=== PATIENT | male | born 1950 | race Caucasian/White ===

== ENCOUNTER → 2017-10-21 07:42 | Outpatient (REF) | payer MEDICARE, SELFPAY ==
[2017-10-21 08:26] LABS: Add Manual Diff / Slide Review NO; Basophils Percent Auto 0.5 % (0-2); Eosinophils Percent Auto 1.2 % (2-4); Hematocrit 36.1 % (41-53); Hemoglobin 12.3 g/dL (13.5-17.5); Lymphocytes Percent Auto 45.8 % (25-40); Mean Corpuscular Hemoglobin 31.5 PG (26-34); Mean Corpuscular Volume 92.5 fL (80-100); Monocytes Percent Auto 7.9 % (3-14); Neutrophils Absolute Auto 3300 /uL (3000-5900); Neutrophils Percent Auto 44.6 % (50-75); Platelet Count 192 X10^3/uL (150-400); Red Cell Distribution Width 14.7 % (11.6-14.8); White Blood Cell Count 7.4 X10^3/uL (4.5-11.0)
[2017-10-21 08:37] LABS: Estimated Glomerular Filt Rate > 60.0 mL/min (>60); Glucose 106 mg/dL (80-110); HEMOLYSIS < 15 (0-50); Sodium 141 mmol/L (137-145)
== END ==
LOC: LAB 07:42
PROVIDERS: PCP Family Medicine; Visit Provider Family Medicine
DX: E11.9 Type 2 diabetes mellitus without complications (principal)
CPT/HCPCS: 36415; 80048; 83036; 85025

== ENCOUNTER → 2018-01-25 07:29 | Outpatient (REF) | payer MEDICARE, SELFPAY ==
[2018-01-25 07:55] LABS: Hemoglobin A1C% w Est Avg Glu 6.5 % (4.0-6.0)
[2018-01-25 07:56] LABS: BUN Creatinine Ratio 18.6 (6-22); Blood Urea Nitrogen 13 mg/dL (9-20); Calcium 9.3 mg/dL (8.4-10.2); Carbon Dioxide 29 mmol/L (22-32); Chloride 104 mmol/L (98-107); Estimated Glomerular Filt Rate > 60.0 mL/min (>60); Glucose 118 mg/dL (80-110); HEMOLYSIS < 15 (0-50); Potassium 4.2 mmol/L (3.4-5.1); Sodium 143 mmol/L (137-145)
== END ==
LOC: LAB 07:29
PROVIDERS: PCP Family Medicine; Visit Provider Family Medicine
DX: E11.9 Type 2 diabetes mellitus without complications (principal)
CPT/HCPCS: 36415; 80048; 83036

== ENCOUNTER → 2018-04-26 08:42 | Outpatient (REF) | payer MEDICARE, SELFPAY ==
[2018-04-26 10:31] LABS: Hemoglobin A1C% w Est Avg Glu 6.9 % (4.0-6.0)
[2018-04-26 10:37] LABS: BUN Creatinine Ratio 24.3 (6-22); Blood Urea Nitrogen 17 mg/dL (9-20); Calcium 9.6 mg/dL (8.4-10.2); Carbon Dioxide 28 mmol/L (22-32); Chloride 101 mmol/L (98-107); Estimated Glomerular Filt Rate > 60.0 mL/min (>60); Glucose 162 mg/dL (80-110); HEMOLYSIS < 15 (0-50); Potassium 4.1 mmol/L (3.4-5.1); Sodium 144 mmol/L (137-145)
== END ==
LOC: LAB 08:42
PROVIDERS: PCP Family Medicine; Visit Provider Family Medicine
DX: E11.9 Type 2 diabetes mellitus without complications (principal)
CPT/HCPCS: 36415; 80048; 83036

== ENCOUNTER → 2018-06-26 08:14 | Outpatient (REF) | payer MEDICARE, SELFPAY ==
[2018-06-26 09:24] LABS: Add Manual Diff / Slide Review NO; Basophils Absolute Auto 100 /uL (0-100); Basophils Percent Auto 0.9 % (0-2); Eosinophils Absolute Auto 100 /uL (0-450); Eosinophils Percent Auto 1.4 % (2-4); Hemoglobin 12.6 g/dL (13.5-17.5); Lymphocytes Absolute Auto 3100 /uL (1100-4500); Lymphocytes Percent Auto 39.6 % (25-40); Mean Corpuscular HGB Conc 33.1 % (30-36); Mean Corpuscular Hemoglobin 31.2 PG (26-34); Mean Corpuscular Volume 94.2 fL (80-100); Monocytes Absolute Auto 600 /uL (0-900); Monocytes Percent Auto 7.7 % (3-14); Neutrophils Absolute Auto 4000 /uL (1500-7000); Neutrophils Percent Auto 50.4 % (50-75); Platelet Count 225 X10^3/uL (150-400); Red Blood Cell Count 4.03 X10^6/uL (4.5-5.9); Red Cell Distribution Width 14.7 % (11.6-14.8); White Blood Cell Count 7.9 X10^3/uL (4.5-11.0)
[2018-06-26 09:25] LABS: Blood Urea Nitrogen 14 mg/dL (9-20); Calcium 9.2 mg/dL (8.4-10.2); Carbon Dioxide 28 mmol/L (22-32); Chloride 103 mmol/L (98-107); Estimated Glomerular Filt Rate > 60.0 mL/min (>60); Glucose 119 mg/dL (80-110); HEMOLYSIS < 15 (0-50); Potassium 4.5 mmol/L (3.4-5.1); Sodium 140 mmol/L (137-145)
[2018-06-26 10:01] LABS: Hemoglobin A1C% w Est Avg Glu 6.7 % (4.0-6.0)
== END ==
LOC: LAB 08:14
PROVIDERS: PCP Family Medicine; Visit Provider Family Medicine
DX: E11.9 Type 2 diabetes mellitus without complications (principal)
CPT/HCPCS: 36415; 80048; 83036; 85025

== ENCOUNTER → 2018-10-12 15:45 | Outpatient (CLI) | payer MEDICARE, SELFPAY ==
[2018-10-12 16:28] LABS: Hemoglobin A1C% w Est Avg Glu 6.5 % (4.0-6.0)
[2018-10-12 17:41] LABS: BUN Creatinine Ratio 17.5 (6-22); Blood Urea Nitrogen 14 mg/dL (9-20); Calcium 9.8 mg/dL (8.4-10.2); Carbon Dioxide 25 mmol/L (22-32); Chloride 102 mmol/L (98-107); Estimated Glomerular Filt Rate > 60.0 mL/min (>60); Glucose 128 mg/dL (80-110); HEMOLYSIS < 15 (0-50); Potassium 4.6 mmol/L (3.4-5.1); Sodium 139 mmol/L (137-145)
== END ==
PROVIDERS: PCP Family Medicine; Visit Provider Family Medicine
DX: E11.9 Type 2 diabetes mellitus without complications (principal)
CPT/HCPCS: 36415; 80048; 83036

== ENCOUNTER → 2018-12-26 11:10 | Outpatient (CLI) | payer MEDICARE, SELFPAY ==
[2018-12-26 12:11] LABS: Hemoglobin A1C% w Est Avg Glu 6.4 % (4.0-6.0)
[2018-12-26 13:56] LABS: BUN Creatinine Ratio 17.5 (6-22); Blood Urea Nitrogen 14 mg/dL (9-20); Calcium 9.6 mg/dL (8.4-10.2); Carbon Dioxide 28 mmol/L (22-32); Chloride 102 mmol/L (98-107); Estimated Glomerular Filt Rate > 60.0 mL/min (>60); Glucose 153 mg/dL (80-110); HEMOLYSIS < 15 (0-50); Potassium 4.5 mmol/L (3.4-5.1); Sodium 142 mmol/L (137-145)
== END ==
PROVIDERS: PCP Family Medicine; Visit Provider Family Medicine
DX: E11.9 Type 2 diabetes mellitus without complications (principal)
CPT/HCPCS: 36415; 80048; 83036

== ENCOUNTER → 2019-03-26 07:28 | Outpatient (ROUT) | payer MEDICARE, SELFPAY ==
[2019-03-26 07:51] LABS: Hemoglobin A1C% w Est Avg Glu 6.5 % (4.0-6.0)
[2019-03-26 07:58] LABS: BUN Creatinine Ratio 21.7 (6-22); Blood Urea Nitrogen 13 mg/dL (9-20); Calcium 9.3 mg/dL (8.4-10.2); Carbon Dioxide 30 mmol/L (22-32); Chloride 105 mmol/L (98-107); Estimated Glomerular Filt Rate > 60.0 mL/min (>60); Glucose 111 mg/dL (80-110); HEMOLYSIS < 15 (0-50); Sodium 141 mmol/L (137-145)
== END ==
PROVIDERS: PCP Family Medicine; Visit Provider Family Medicine
DX: E11.9 Type 2 diabetes mellitus without complications (principal)
CPT/HCPCS: 36415; 80048; 83036

== ENCOUNTER 2019-03-29 10:36 | Emergency (ER) | payer MEDICARE, SELFPAY ==
--- NOTE | 2019-03-29 10:41 | ED.NEUROSD ---
HPI - Neuro Symptoms/Deficit General Chief Complaint: Neuro Symptoms/Deficit Stated Complaint: Neuro changes Time Seen by Provider: 03/29/19 10:41 Source: EMS Mode of arrival: EMS Limitations: altered mental status History of Present Illness HPI Narrative: Patient is a resident of [facility]. 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 He was noted to be normal/baseline at 8:00 a.m.. He arrives by EMS approximately 2.5 hours later, he developed expressive aphasia and no responses to interaction with staff. Upon arrival he is awake, is no verbal response, but he nausea understands me. He obeys verbal complaints. He is apparently in no pain. He indicates this by head nods. He smiles, blinks his eyes, he moves his left extremities on command. He has a baseline of hemiplegia to the right side. There is no reported recent illness. Related Data Home Medications Medication Instructions Recorded Confirmed acetaminophen 325 - 650 mg PO Q4HP PRN 03/29/19 03/29/19 alprazolam [Xanax] 0.25 mg PO BEDTIME 03/29/19 03/29/19 baclofen 20 - 40 mg PO BID 03/29/19 03/29/19 Previous Rx's Medication Instructions Recorded bupropion HCl 150 mg tablet,12 hr 150 mg PO BID #180 tab 11/14/18 sustained-release atorvastatin 40 mg tablet 40 mg PO DAILY #90 tab 12/11/18 metformin 500 mg tablet 500 mg PO BID #180 tab 12/11/18 water for irrigation, sterile 60 ml IRR .COMPLEX #1000 ml 01/08/19 Allergies Allergy/AdvReac Type Severity Reaction Status Date / Time Penicillins Allergy Unknown Verified 03/19/19 15:50 Review of Systems Review of Systems ROS Unobtainable: Unobtainable due to medical condition Patient History Medical History (Updated 03/29/19 @ 12:02 by Yeison Pierson MD) Cataract (Chronic) Diabetes mellitus (Chronic ~2012) Diverticulitis (Chronic ~2013) Hyperlipidemia (Chronic ~2013) Stroke (Chronic ~2014) Urinary retention (Acute) Surgical History Anesthesia (Resolved) History of tonsillectomy Family History Father Dementia Sister Age: 64 Acute ischemic stroke Social History Smoking Status: Former smoker Exam Initial Vital Signs Initial Vital Signs: Vital Signs Temperature 97.9 F 03/29/19 10:45 Pulse Rate 77 03/29/19 10:45 Respiratory Rate 16 03/29/19 10:45 Blood Pressure 137/81 03/29/19 10:45 Pulse Oximetry 93 03/29/19 10:45 Const General: frail appearing and other (Minimally responsive, aphasia.) [facility] Head: normal to inspection, normocephalic and atraumatic Ears: TM's normal bilaterally Face and sinus: normal facial exam Mouth: oral mucosae normal Teeth and gingiva: gingiva normal Throat: posterior oropharynx normal Eyes General: appearance normal, both eyes and all related structures Eyelids: eyelids normal Conjunctivae: conjunctivae normal Sclera: sclerae normal Pupils: PERRL and pupil size bilaterally 3 EOM: EOM intact bilaterally Neck Neck: No lymphadenopathy and No JVD Thyroid: thyroid normal Chest Chest: normal inspection of the chest Resp Effort & Inspection: normal respiratory effort, able to speak in complete sentences, no respiratory distress and no use of accessory muscles Auscultation: clear to auscultation bilaterally, no rales, no rhonchi and no wheezes Cardio Rate: regular rate Rhythm: regular rhythm Heart Sounds: S1 normal, S2 normal, no click, no gallops, no murmurs and no rubs Pulses: normal peripheral pulses GI Inspection: non-distended Palpation: soft, no hepatosplenomegaly, No guarding and No tender Auscultation: normal bowel sounds Skin General: no rashes or lesions noted and No petechiae Neuro Other: Weight. Aphasia. Chronic right facial droop, and chronic right-sided hemiparalysis. Responds to verbal commands with eye motion, attempt to smile, and left side motion. No verbal response. Orientation and question answering cannot be assessed. Sensation cannot be assessed. Extrem Other: Moves left side under command, right-sided paralysis. Course Course Course Narrative: The patient had dense neurologic deficits prior to arrival, but apparently improved the symptoms been able to respond to me after arrival. Head CT and labs have been normal other than the the urine sample. He has indwelling Meyer for urinary retention, colonization is assumed. He is now awake, comprehending our conversation, and remembering my 1st visit where I was doing a neurologic evaluation. He is currently asymptomatic. His POLST was reviewed. No aggressive management is expected, including no antibiotics unless for symptoms. He now sees be back to his baseline. I discussed the case with his primary care doctor, Dr. Zeb Cadena. Based upon the clinical situation and expectations, at the patient can't pass a swallow test he will go back to his care facility. Dr. Cadena will then order OT and PT. The patient will be given aspirin/started on aspirin prior to discharge. Orders Ordered: ED Orders 03/29/19 10:42 CT head/brain wo con Stat EKG-12 Lead Stat 03/29/19 10:49 Basic Metabolic Panel Stat Complete Blood Count AUTO DIFF Stat Partial Thromboplastin Time Stat Prothrombin Time INR Stat 03/29/19 11:05 Urinalysis and Microscopic Stat Urine Culture Stat Discontinued Medications Aspirin (Aspirin Chew) 324 mg PO NOW ONE Stop: 03/29/19 12:01 Last Admin: 03/29/19 12:08 Dose: 324 mg Documented by: MARYLU Sodium Chloride (Normal Saline 0.9%) 1,000 mls @ 150 mls/hr IV CONT SOTO Last Admin: 03/29/19 11:37 Dose: Not Given Documented by: JESSICALE Sodium Chloride (Normal Saline 0.9%) 1,000 mls @ 1,000 mls/hr IV BOLUS ONE Stop: 03/29/19 12:27 Last Admin: 03/29/19 11:37 Dose: Not Given Documented by: MARYLU Ceftriaxone Sodium/Dextrose (Rocephin) 1 gm in 50 mls @ 100 mls/hr IV NOW ONE Stop: 03/29/19 11:57 Last Admin: 03/29/19 11:37 Dose: Not Given Documented by: MARYLU Vital Signs Vital signs: Vital Signs - 8 hr 03/29/19 10:45 03/29/19 11:33 03/29/19 12:05 Temperature 97.9 F Pulse Rate 77 77 71 Respiratory Rate 16 18 15 Blood Pressure 137/81 Blood Pressure [Left Arm] 137/81 128/74 Pulse Oximetry 93 98 98 03/29/19 12:57 Temperature Pulse Rate 76 Respiratory Rate 17 Blood Pressure Blood Pressure [Left Arm] 121/69 Pulse Oximetry 97 MDM - Neuro Symptoms/Deficit Lab Data Result diagrams: 03/29/19 10:49 03/29/19 10:49 Labs: Lab Results 03/29/19 03/29/19 03/29/19 Range/Units 10:49 10:49 10:49 WBC 7.5 (4.5-11.0) X10^3/uL RBC 4.05 L (4.5-5.9) X10^6/uL Hgb 12.8 L (13.5-17.5) g/dL Hct 38.3 L (41-53) % MCV 94.4 (80-100) fL MCH 31.7 (26-34) PG MCHC 33.6 (30-36) % RDW 15.0 H (11.6-14.8) % Plt Count 259 (150-400) X10^3/uL Neut % (Auto) 54.1 (50-75) % Lymph % (Auto) 34.9 (25-40) % [place] % (Auto) 9.4 (3-14) % Eos % (Auto) 0.9 L (2-4) % Baso % (Auto) 0.7 (0-2) % Neut # (Auto) 4100 (0273-6576) /uL Lymph # (Auto) 2600 (4163-5682) /uL [place] # (Auto) 700 (0-900) /uL Eos # (Auto) 100 (0-450) /uL Baso # (Auto) 100 (0-100) /uL PT 13.2 H (10.1-12.7) SECONDS INR 1.1 (0.9-1.3) APTT 39 H (26.4-36.2) SECONDS Sodium 141 (137-145) mmol/L Potassium 4.0 (3.4-5.1) mmol/L Chloride 101 (98-107) mmol/L Carbon Dioxide 29 (22-32) mmol/L BUN 12 (9-20) mg/dL Creatinine 0.60 L (0.66-1.25) mg/dL Estimated GFR > 60.0 (>60) mL/min BUN/Creatinine Ratio 20.0 (6-22) Glucose 105 (80-110) mg/dL Calcium 9.4 (8.4-10.2) mg/dL Urine Color Urine Appearance Urine pH (4.5-8.0) Ur Specific [place] (1.000-1.035) Urine Protein (Negative) Urine Glucose (UA) (Negative) g/dL Urine Ketones (NEGATIVE) Urine Occult Blood (Negative) Urine Nitrate (Negative) Urine Bilirubin (NEGATIVE) Urine Urobilinogen (0.2) E.U./dL Ur Leukocyte Esterase (NEGATIVE) Urine RBC (0-5/HPF) Urine WBC (0-5/HPF) Amorphous Sediment Urine Bacteria (None) Ur Culture Indicated? 03/29/19 Range/Units 11:05 WBC (4.5-11.0) X10^3/uL RBC (4.5-5.9) X10^6/uL Hgb (13.5-17.5) g/dL Hct (41-53) % MCV (80-100) fL MCH (26-34) PG MCHC (30-36) % RDW (11.6-14.8) % Plt Count (150-400) X10^3/uL Neut % (Auto) (50-75) % Lymph % (Auto) (25-40) % [place] % (Auto) (3-14) % Eos % (Auto) (2-4) % Baso % (Auto) (0-2) % Neut # (Auto) (5191-8863) /uL Lymph # (Auto) (3075-9139) /uL [place] # (Auto) (0-900) /uL Eos # (Auto) (0-450) /uL Baso # (Auto) (0-100) /uL PT (10.1-12.7) SECONDS INR (0.9-1.3) APTT (26.4-36.2) SECONDS Sodium (137-145) mmol/L Potassium (3.4-5.1) mmol/L Chloride (98-107) mmol/L Carbon Dioxide (22-32) mmol/L BUN (9-20) mg/dL Creatinine (0.66-1.25) mg/dL Estimated GFR (>60) mL/min BUN/Creatinine Ratio (6-22) Glucose (80-110) mg/dL Calcium (8.4-10.2) mg/dL Urine Color Yellow Urine Appearance Cloudy Urine pH 6.5 (4.5-8.0) Ur Specific [place] 1.020 (1.000-1.035) Urine Protein Negative (Negative) Urine Glucose (UA) Negative (Negative) g/dL Urine Ketones 1+ H (NEGATIVE) Urine Occult Blood 1+ H (Negative) Urine Nitrate Negative (Negative) Urine Bilirubin Negative (NEGATIVE) Urine Urobilinogen 0.2 (0.2) E.U./dL Ur Leukocyte Esterase 2+ H (NEGATIVE) Urine RBC 5-10/hpf H (0-5/HPF) Urine WBC 30-100/hpf H (0-5/HPF) Amorphous Sediment 1+ Urine Bacteria Many (>30) H (None) Ur Culture Indicated? Specimen cultured Point of Care Testing Glucose POC [address] scan - head: My impression: 61 Yeison Pierson MD Find Patient Imaging - Aftab Irizarry 68 M 1950 ACTIVITY DATE EXAM STATUS AUTHOR 03/29/19 10:42 [place] [address] CT Scan Report Signed Patient: Aftab Irizarry KMR#: [id number] : 9Acct:[id number] Age/Sex: 68 / MDate of Service: 03/29/19 Loc: ED Accession Number: [id number] Procedure: CT head/brain wo con Ordering Provider: Yeison Pierson MD PROCEDURE: CT HEAD/BRAIN WO CON INDICATIONS: New onset aphasia. Prior CVA with right hemiparesis. TECHNIQUE: Noncontrast 4.5 mm thick angled axial sections acquired from the foramen magnum to the vertex, with coronal and sagittal reformats. For radiation dose reduction, the following was used: automated exposure control, adjustment of mA and/or kV according to patient size. COMPARISON: None. FINDINGS: Image quality: Excellent. CSF spaces: Basal cisterns are patent. No extra-axial fluid collections. The ventricles are symmetric in size and shape. Brain: No intracranial bleeds or masses. Chronic infarct with surrounding gliosis involving the left putamen, left external capsule and left cardenas radiata. Chronic, parietal-occipital infarcts with surrounding gliosis. There is cerebral volume loss for age, with resultant ventricular and sulcal prominence. There are periventricular and deep white matter chronic small vessel ischemic changes. There is intracranial internal carotid artery atherosclerosis. Skull and face: Calvarium and visualized facial bones appear intact, without suspicious lesions. Sinuses: Visualized sinuses and mastoids are clear. IMPRESSION: 1. No acute intracranial disease process. 2. No intracranial hemorrhage. 3. Chronic infarcts as described above. Findings telephoned to Dr. Yeison Pierson on 03/29/2019 at 1109 hrs. Dictated by: Mariam Kohler MD, PhD on 03/29/2019 at 11:07 Approved by: Mariam Kohler MD, PhD on 03/29/2019 at 11:11 ECG Data Attestation: I personally reviewed and interpreted this ECG as follows: (Normal sinus rhythm rate 76 beats per minute. Normal intervals. Old septal infarct. Poor R-wave progression through the anterior leads. No ectopy. No acute ST T wave changes.) Discharge Plan Departure Patient Disposition: Assisted Living Clinical Impression: Brain TIA Discharge Date/Time: 03/29/19 13:38 Instructions: DI for Transient Ischemic Attack Activity Restrictions/Additional Instructions: Continue her current medications. Baby aspirin, 1 tablet daily. Prescriptions: No Action bupropion HCl [Wellbutrin SR] 150 mg tablet sustained-release 12 hr 150 mg PO BID Qty: 180 RF: 1 metformin [Glucophage] 500 mg tablet 500 mg PO BID Qty: 180 RF: 1 atorvastatin 40 mg tablet 40 mg PO DAILY Qty: 90 RF: 1 water for irrigation, sterile [Aqua Care Sterile Water] solution 60 ml IRR .COMPLEX Qty: 1000 RF: 3 acetaminophen 325 mg tablet 325 - 650 mg PO Q4HP PRN (Reason: fever or pain) RF: 0 baclofen 20 mg tablet 20 - 40 mg PO BID RF: 0 alprazolam [Xanax] 0.25 mg tablet 0.25 mg PO BEDTIME RF: 0 Referrals: Zeb Cadena MD [Primary Care Provider] -
[2019-03-29 10:45] VITALS: BP 137/81; PULSE 77; RESP 16; TEMP 36.6; O2SAT 93
[2019-03-29 10:53] LABS: Add Manual Diff / Slide Review NO; Basophils Absolute Auto 100 /uL (0-100); Basophils Percent Auto 0.7 % (0-2); Eosinophils Absolute Auto 100 /uL (0-450); Eosinophils Percent Auto 0.9 % (2-4); Hematocrit 38.3 % (41-53); Hemoglobin 12.8 g/dL (13.5-17.5); Lymphocytes Absolute Auto 2600 /uL (1100-4500); Lymphocytes Percent Auto 34.9 % (25-40); Mean Corpuscular HGB Conc 33.6 % (30-36); Mean Corpuscular Hemoglobin 31.7 PG (26-34); Mean Corpuscular Volume 94.4 fL (80-100); Monocytes Absolute Auto 700 /uL (0-900); Monocytes Percent Auto 9.4 % (3-14); Neutrophils Absolute Auto 4100 /uL (1500-7000); Neutrophils Percent Auto 54.1 % (50-75); Platelet Count 259 X10^3/uL (150-400); Red Blood Cell Count 4.05 X10^6/uL (4.5-5.9); White Blood Cell Count 7.5 X10^3/uL (4.5-11.0)
[2019-03-29 10:55] LABS: INR 1.1 (0.9-1.3); Prothrombin Time 13.2 SECONDS (10.1-12.7)
[2019-03-29 10:58] LABS: PTT Partial Thromboplastin Tim 39 SECONDS (26.4-36.2)
[2019-03-29 11:01] LABS: Blood Urea Nitrogen 12 mg/dL (9-20); Calcium 9.4 mg/dL (8.4-10.2); Carbon Dioxide 29 mmol/L (22-32); Chloride 101 mmol/L (98-107); Estimated Glomerular Filt Rate > 60.0 mL/min (>60); Glucose 105 mg/dL (80-110); HEMOLYSIS < 15 (0-50); Sodium 141 mmol/L (137-145)
[2019-03-29 11:12] LABS: Appearance Urine UA CLOUDY; Bilirubin Urine UA NEGATIVE (NEGATIVE); Color Urine UA YELLOW; Glucose Urine UA NEGATIVE (Negative); Ketones Urine UA 1+ (NEGATIVE); Leukocyte Esterase Urine UA 2+ (NEGATIVE); Nitrite Urine UA NEGATIVE (Negative); Occult Blood Urine UA 1+ (Negative); Protein Urine UA NEGATIVE (Negative); Urobilinogen Urine UA 0.2 E.U./dL (0.2); pH Urine UA 6.5 (4.5-8.0)
--- NOTE | 2019-03-29 11:20 | PC.NURSE ---
Received pt at 1100. pt resting in bed with DI at bedside to take pt for head CT. Labs drawn, attached to cardiac monitoring, IV in place. Noted that report from EMS on arrival that pt had change in LOC and decreased responsiveness when rounded on this morning at [address] [facility]. Pt is alert and oriented at this time. Pt with h/o R sided CVA with R sided hemiparesis. Unk if LOC is baseline. Able to verbalize that he is not in pain. No dysarthria noted. slow to speak, although words are clear. EKG obtained. HR [address] and specimen obtained and sent per order. NAD at this time.
[2019-03-29 11:25] LABS: Amorphous Sediment Urine 1+; Bacteria Urine Many (>30); Culture Indicated Urine Specimen Cultured; RBC Urine 5-10/HPF (0-5/HPF); WBC Urine 30-100/HPF (0-5/HPF)
[2019-03-29 11:33] VITALS: BP 137/81; PULSE 77; RESP 18; O2SAT 98
--- NOTE | 2019-03-29 11:36 | PC.NURSE ---
Received verbal order from Dr Pierson that per patients POLST no ABX shall be admin'd. Orders canceled.
[2019-03-29 12:05] VITALS: BP 128/74; PULSE 71; RESP 15; O2SAT 98
[2019-03-29] MEDS: ASPIRIN 81 MG CHEW TAB 324 MG PO (12:08)
[2019-03-29 12:57] VITALS: BP 121/69; PULSE 76; RESP 17; O2SAT 97
--- NOTE | 2019-03-29 13:10 | PC.NURSE ---
pt passed swallow test. given ASA per MAR without complication
--- NOTE | 2019-03-29 13:36 | PC.NURSE ---
Attempted report to [facility] with the number that was provided. No answer. left message with call back number.
== END 2019-03-29 13:38 ==
PROVIDERS: Emergency Provider Emergency Medicine; PCP Family Medicine
DX: G45.8 Other transient cerebral ischemic attacks and related syndromes (principal); R33.9 Retention of urine, unspecified; G81.11 Spastic hemiplegia affecting right dominant side
CPT/HCPCS: 36415; 70450; 80048; 81001; 82962; 85025; 85610; 85730; 87077; 87086; 87186; 93005; 99283; 99285

== ENCOUNTER → 2019-04-17 11:22 | Outpatient (CLI) | payer MEDICARE, SELFPAY ==
[2019-04-17 12:05] LABS: Appearance Urine UA SL CLOUDY; Bilirubin Urine UA NEGATIVE (NEGATIVE); Color Urine UA YELLOW; Glucose Urine UA NEGATIVE (Negative); Ketones Urine UA NEGATIVE (NEGATIVE); Leukocyte Esterase Urine UA 2+ (NEGATIVE); Nitrite Urine UA POSITIVE (Negative); Occult Blood Urine UA 3+ (Negative); Protein Urine UA 2+ (Negative); Urobilinogen Urine UA 0.2 E.U./dL (0.2); pH Urine UA 6.5 (4.5-8.0)
[2019-04-17 12:22] LABS: Bacteria Urine Many (>30); RBC Urine 30-100/HPF (0-5/HPF); WBC Urine >100/HPF (0-5/HPF)
== END ==
PROVIDERS: PCP Family Medicine; Visit Provider Family Medicine
DX: N39.0 Urinary tract infection, site not specified (principal)
CPT/HCPCS: 81001; 87077; 87086; 87186

== ENCOUNTER → 2019-04-30 10:48 | Outpatient (ROUT) | payer MEDICARE, SELFPAY ==
[2019-04-30 10:50] LABS: Bacteria Urine None Seen
[2019-04-30 10:59] LABS: Appearance Urine UA CLOUDY; Bilirubin Urine UA NEGATIVE (NEGATIVE); Color Urine UA YELLOW; Glucose Urine UA NEGATIVE (Negative); Ketones Urine UA 1+ (NEGATIVE); Leukocyte Esterase Urine UA TRACE (NEGATIVE); Nitrite Urine UA POSITIVE (Negative); Occult Blood Urine UA 3+ (Negative); Protein Urine UA 2+ (Negative); Specific Gravity Urine UA 1.025 (1.000-1.035); Urobilinogen Urine UA 0.2 E.U./dL (0.2)
[2019-04-30 11:11] LABS: Culture Indicated Urine Specimen Cultured; RBC Urine 5-10/HPF (0-5/HPF); WBC Urine 5-10/HPF (0-5/HPF)
== END ==
PROVIDERS: PCP Family Medicine; Visit Provider Family Medicine
DX: R39.89 Other symptoms and signs involving the genitourinary system (principal)
CPT/HCPCS: 81001; 87077; 87086; 87186

== ENCOUNTER 2019-05-23 08:09 | Observation (INO) | payer MEDICARE, SELFPAY ==
[2019-05-23] VITALS (11 sets, daily range): BP systolic 114–153; BP diastolic 70–90; PULSE 68–86; RESP 14–21; TEMP 36.2–36.8; O2SAT 94–98; BMI 23.7
--- NOTE | 2019-05-23 08:13 | ED.AMS ---
HPI - Altered Mental Status General Chief Complaint: Altered Mental Status Stated Complaint: Possible Stroke Time Seen by Provider: 05/23/19 08:10 Source: EMS and old records reviewed Mode of arrival: EMS History of Present Illness HPI narrative: Patient is a 68-year-old male with history of CVA and right-sided hemiparesis presenting with altered mental status. He lives at [facility] and is typically is GCS of 15. He was found this morning by staff not talking or following directions. He has a chronic Meyer catheter is which does appear to have some sediment. He had a UTI April 30 he takes Macrobid prophylactically daily. He is unable to provide any history or follow commands. He has right-sided hemiparesis from previous stroke but no other focal deficits. MD complaint: altered mental status Related Data Home Medications Medication Instructions Recorded Confirmed baclofen 20 - 40 mg PO BID 03/29/19 05/23/19 Previous Rx's Medication Instructions Recorded water for irrigation, sterile 60 ml IRR .COMPLEX #1000 ml 04/30/19 nitrofurantoin macrocrystal 50 mg 50 mg PO BEDTIME #30 cap 05/04/19 capsule acetaminophen 325 mg tablet 325 - 650 mg PO Q4HP PRN #60 tab 05/16/19 atorvastatin 40 mg tablet 40 mg PO DAILY #90 tab 05/16/19 bupropion HCl 150 mg tablet,12 hr 150 mg PO BID #180 tab 05/16/19 sustained-release metformin 500 mg tablet 500 mg PO BID #180 tab 05/16/19 Allergies Allergy/AdvReac Type Severity Reaction Status Date / Time Penicillins Allergy Unknown Verified 05/23/19 09:38 Review of Systems Review of Systems ROS Unobtainable: Unobtainable due to medical condition Patient History Medical History Cataract (Chronic) Diabetes mellitus (Chronic ~2012) Diverticulitis (Chronic ~2013) Hyperlipidemia (Chronic ~2013) Stroke (Chronic ~2014) Urinary retention (Acute) Surgical History Anesthesia (Resolved) History of tonsillectomy Family History Father Dementia Sister Age: 64 Acute ischemic stroke Social History (Reviewed 05/23/19 @ 08:29 by JUAN Vallecillo Smoking Status: Smoker, status unknown Smoking Status: Smoker, status unknown Substance Use Type: does not use Exam Initial Vital Signs Initial Vital Signs: Vital Signs Temperature 97.4 F L 05/23/19 08:14 Pulse Rate 68 05/23/19 08:14 Respiratory Rate 16 05/23/19 08:14 Blood Pressure 153/78 H 05/23/19 08:14 Pulse Oximetry 94 05/23/19 08:14 Gen.: Alert elderly male HEENT: Atraumatic face symmetric extraocular muscles intact Lungs: Clear bilaterally Cardiac: Regular rate Abdomen: Soft nontender : Meyer catheter place Extremities: Right-sided hemiparesis no gross bony deformity peripheral pulses intact no lower extremity edema Neurologic: Alert nonverbal, not following commands Scores GCS [place] coma scale eye opening: Spontaneous [place] coma scale verbal response: None [place] coma scale motor response: Localising [place] coma scale total score: 10 Course Orders Ordered: ED Orders 05/23/19 08:05 B Type Natriuretic Peptide Stat Complete Blood Count AUTO DIFF Stat Comprehensive Metabolic Panel Stat Partial Thromboplastin Time Stat Procalcitonin Stat Prolactin Stat Prothrombin Time INR Stat Thyroid Stimulating Hormone Stat Troponin & CK Cardiac Panel Stat 05/23/19 08:11 Urinalysis and Microscopic Stat Urine Culture Stat EKG-12 Lead Stat 05/23/19 08:12 CT head/brain wo con Stat XR chest 1V Stat 05/23/19 08:15 Lactate (Lactic Acid) Stat 05/23/19 08:40 Blood Culture Stat Sodium Chloride (Normal Saline 0.9%) 1,000 mls @ 150 mls/hr IV CONT SOTO Last Infusion: 05/23/19 10:33 Dose: 0 mls/hr Documented by: Admin: 05/23/19 08:33 Dose: 150 mls/hr Documented by: MARYLU Discontinued Medications Dexamethasone (Decadron) 10 mg PO NOW ONE Stop: 05/23/19 09:06 Last Admin: 05/23/19 09:14 Dose: Not Given Documented by: JAYE Epinephrine (Epinephrine Racemic) 0.5 ml INH NOW ONE Stop: 05/23/19 09:06 Last Admin: 05/23/19 09:14 Dose: Not Given Documented by: JAYE Ceftriaxone Sodium/Dextrose (Rocephin) 1 gm in 50 mls @ 100 mls/hr IV NOW ONE Stop: 12/25/19 09:57 Last Infusion: 05/23/19 10:15 Dose: 0 mls/hr Documented by: Admin: 05/23/19 09:43 Dose: 100 mls/hr Documented by: RYAN Vital Signs Vital signs: Vital Signs - 8 hr 05/23/19 08:14 05/23/19 09:00 05/23/19 09:30 Temperature 97.4 F L Pulse Rate 68 69 78 Respiratory Rate 16 14 16 Blood Pressure 153/78 H Blood Pressure [Right Arm] 137/79 143/90 H Pulse Oximetry 94 97 97 05/23/19 10:00 Temperature Pulse Rate 75 Respiratory Rate 21 Blood Pressure Blood Pressure [Right Arm] 137/83 Pulse Oximetry 98 MDM - Altered Mental Status Lab Data Attestation: I reviewed the patient's lab results. Result diagrams: 05/23/19 08:05 05/23/19 08:05 Labs: Lab Results 05/23/19 05/23/19 05/23/19 Range/Units 08:05 08:05 08:05 WBC 7.6 (4.5-11.0) X10^3/uL RBC 3.82 L (4.5-5.9) X10^6/uL Hgb 12.3 L (13.5-17.5) g/dL Hct 36.3 L (41-53) % MCV 94.9 (80-100) fL MCH 32.1 (26-34) PG MCHC 33.8 (30-36) % RDW 15.6 H (11.6-14.8) % Plt Count 290 (150-400) X10^3/uL Neut % (Auto) 46.6 L (50-75) % Lymph % (Auto) 42.6 H (25-40) % [place] % (Auto) 7.4 (3-14) % Eos % (Auto) 2.1 (2-4) % Baso % (Auto) 1.3 (0-2) % Neut # (Auto) 3600 (3702-8772) /uL Lymph # (Auto) 3300 (2089-2965) /uL [place] # (Auto) 600 (0-900) /uL Eos # (Auto) 200 (0-450) /uL Baso # (Auto) 100 (0-100) /uL PT 12.4 (10.1-12.7) SECONDS INR 1.1 (0.9-1.3) APTT 43 H D (26.4-36.2) SECONDS Sodium 142 (137-145) mmol/L Potassium 4.1 (3.4-5.1) mmol/L Chloride 105 (98-107) mmol/L Carbon Dioxide 30 (22-32) mmol/L BUN 13 (9-20) mg/dL Creatinine 0.60 L (0.66-1.25) mg/dL Estimated GFR > 60.0 (>60) mL/min BUN/Creatinine Ratio 21.7 (6-22) Glucose 102 (80-110) mg/dL Lactate (0.7-2.1) mmol/L Calcium 9.4 (8.4-10.2) mg/dL Total Bilirubin 0.6 (0.2-1.3) mg/dL AST 22 (17-59) IU/L ALT 20 (<50) IU/L Alkaline Phosphatase 151 H (38-126) U/L Total Creatine Kinase 35 L (55-170) U/L CK-MB (CK-2) TNP CK-MB (CK-2) Rel Index TNP Troponin I < 0.012 (0.01-0.034) ng/mL B-Natriuretic Peptide (<100) Total Protein 6.9 (6.3-8.2) g/dL Albumin 4.0 (3.5-5.0) g/dL Globulin 2.9 (1.7-4.1) g/dL Albumin/Globulin Ratio 1.4 (1.0-2.8) Procalcitonin (<0.5) ng/mL TSH (0.47-4.68) uIU/mL Prolactin 27.2 H (3.7-17.9) ng/mL Urine Color Urine Appearance Urine pH (4.5-8.0) Ur Specific [place] (1.000-1.035) Urine Protein (Negative) Urine Glucose (UA) (Negative) g/dL Urine Ketones (NEGATIVE) Urine Occult Blood (Negative) Urine Nitrate (Negative) Urine Bilirubin (NEGATIVE) Urine Urobilinogen (0.2) E.U./dL Ur Leukocyte Esterase (NEGATIVE) Urine RBC (0-5/HPF) Urine WBC (0-5/HPF) Ur Squamous Epith Cells (0-5/HPF) Urine Bacteria (None) Ur Culture Indicated? 05/23/19 05/23/19 05/23/19 Range/Units 08:05 08:05 08:05 WBC (4.5-11.0) X10^3/uL RBC (4.5-5.9) X10^6/uL Hgb (13.5-17.5) g/dL Hct (41-53) % MCV (80-100) fL MCH (26-34) PG MCHC (30-36) % RDW (11.6-14.8) % Plt Count (150-400) X10^3/uL Neut % (Auto) (50-75) % Lymph % (Auto) (25-40) % [place] % (Auto) (3-14) % Eos % (Auto) (2-4) % Baso % (Auto) (0-2) % Neut # (Auto) (5585-7202) /uL Lymph # (Auto) (4154-3158) /uL [place] # (Auto) (0-900) /uL Eos # (Auto) (0-450) /uL Baso # (Auto) (0-100) /uL PT (10.1-12.7) SECONDS INR (0.9-1.3) APTT (26.4-36.2) SECONDS Sodium (137-145) mmol/L Potassium (3.4-5.1) mmol/L Chloride (98-107) mmol/L Carbon Dioxide (22-32) mmol/L BUN (9-20) mg/dL Creatinine (0.66-1.25) mg/dL Estimated GFR (>60) mL/min BUN/Creatinine Ratio (6-22) Glucose (80-110) mg/dL Lactate (0.7-2.1) mmol/L Calcium (8.4-10.2) mg/dL Total Bilirubin (0.2-1.3) mg/dL AST (17-59) IU/L ALT (<50) IU/L Alkaline Phosphatase (38-126) U/L Total Creatine Kinase (55-170) U/L CK-MB (CK-2) CK-MB (CK-2) Rel Index Troponin I (0.01-0.034) ng/mL B-Natriuretic Peptide < 100 (<100) Total Protein (6.3-8.2) g/dL Albumin (3.5-5.0) g/dL Globulin (1.7-4.1) g/dL Albumin/Globulin Ratio (1.0-2.8) Procalcitonin < 0.05 (<0.5) ng/mL TSH 3.41 (0.47-4.68) uIU/mL Prolactin (3.7-17.9) ng/mL Urine Color Urine Appearance Urine pH (4.5-8.0) Ur Specific [place] (1.000-1.035) Urine Protein (Negative) Urine Glucose (UA) (Negative) g/dL Urine Ketones (NEGATIVE) Urine Occult Blood (Negative) Urine Nitrate (Negative) Urine Bilirubin (NEGATIVE) Urine Urobilinogen (0.2) E.U./dL Ur Leukocyte Esterase (NEGATIVE) Urine RBC (0-5/HPF) Urine WBC (0-5/HPF) Ur Squamous Epith Cells (0-5/HPF) Urine Bacteria (None) Ur Culture Indicated? 05/23/19 05/23/19 Range/Units 08:11 08:15 WBC (4.5-11.0) X10^3/uL RBC (4.5-5.9) X10^6/uL Hgb (13.5-17.5) g/dL Hct (41-53) % MCV (80-100) fL MCH (26-34) PG MCHC (30-36) % RDW (11.6-14.8) % Plt Count (150-400) X10^3/uL Neut % (Auto) (50-75) % Lymph % (Auto) (25-40) % [place] % (Auto) (3-14) % Eos % (Auto) (2-4) % Baso % (Auto) (0-2) % Neut # (Auto) (6791-3098) /uL Lymph # (Auto) (1873-8823) /uL [place] # (Auto) (0-900) /uL Eos # (Auto) (0-450) /uL Baso # (Auto) (0-100) /uL PT (10.1-12.7) SECONDS INR (0.9-1.3) APTT (26.4-36.2) SECONDS Sodium (137-145) mmol/L Potassium (3.4-5.1) mmol/L Chloride (98-107) mmol/L Carbon Dioxide (22-32) mmol/L BUN (9-20) mg/dL Creatinine (0.66-1.25) mg/dL Estimated GFR (>60) mL/min BUN/Creatinine Ratio (6-22) Glucose (80-110) mg/dL Lactate 1.3 (0.7-2.1) mmol/L Calcium (8.4-10.2) mg/dL Total Bilirubin (0.2-1.3) mg/dL AST (17-59) IU/L ALT (<50) IU/L Alkaline Phosphatase (38-126) U/L Total Creatine Kinase (55-170) U/L CK-MB (CK-2) CK-MB (CK-2) Rel Index Troponin I (0.01-0.034) ng/mL B-Natriuretic Peptide (<100) Total Protein (6.3-8.2) g/dL Albumin (3.5-5.0) g/dL Globulin (1.7-4.1) g/dL Albumin/Globulin Ratio (1.0-2.8) Procalcitonin (<0.5) ng/mL TSH (0.47-4.68) uIU/mL Prolactin (3.7-17.9) ng/mL Urine Color Yellow Urine Appearance Clear Urine pH 5.5 (4.5-8.0) Ur Specific [place] 1.020 (1.000-1.035) Urine Protein 1+ H (Negative) Urine Glucose (UA) Negative (Negative) g/dL Urine Ketones Negative (NEGATIVE) Urine Occult Blood 2+ H (Negative) Urine Nitrate Positive (Negative) Urine Bilirubin Negative (NEGATIVE) Urine Urobilinogen 1.0 (0.2) E.U./dL Ur Leukocyte Esterase Trace H (NEGATIVE) Urine RBC 5-10/hpf H (0-5/HPF) Urine WBC 1-5/hpf (0-5/HPF) Ur Squamous Epith Cells 0-1 /hpf (0-5/HPF) Urine Bacteria Few (2-10) H (None) Ur Culture Indicated? Specimen cultured Point of Care Testing Glucose POC 98 Imaging Data Chest x-ray: Radiologist's Impression: PROCEDURE: XR CHEST 1V INDICATIONS: altered mental status TECHNIQUE: One view of the chest was acquired. COMPARISON: [facility], CR, CHEST 1 VIEW, 02/27/2015, 19:53. FINDINGS: Surgical changes and devices: None. Lungs and pleura: A spiculated mass is present within the right lower lung. There is diffuse interstitial prominence. Mediastinum: Mediastinal contours appear normal. Heart size is mildly enlarged. Bones and chest wall: No suspicious bony lesions. Overlying soft tissues appear unremarkable. IMPRESSION: 1. Spiculated right lower lung mass suspicious for neoplasm. CT of the chest recommended to further characterize this finding. 2. Interstitial prominence and cardiomegaly which may be associated with fluid overload or congestive failure. Dictated by: Darlin Hamilton M.D. on 05/23/2019 at 7:3 CT scan - head: Radiologist's Impression: PROCEDURE: CT HEAD/BRAIN WO CON INDICATIONS: decreased mental status TECHNIQUE: Noncontrast 4.5 mm thick angled axial sections acquired from the foramen magnum to the vertex, with coronal and sagittal reformats. For radiation dose reduction, the following was used: automated exposure control, adjustment of mA and/or kV according to patient size. COMPARISON: [facility], CT, CT HEAD/BRAIN WO CON, 03/29/2019, 10:53. FINDINGS: Image quality: Excellent. CSF spaces: Basal cisterns are patent. No extra-axial fluid collections. The ventricles are symmetric in size and shape. Brain: No intracranial bleeds or masses. There is marked cerebral volume loss for age, with resultant ventricular and sulcal prominence. There are periventricular and deep white matter chronic small vessel ischemic changes. Encephalomalacia is present within the left frontoparietal region and insula and within the right parieto-occipital lobe suggesting chronic infarcts. There is intracranial internal carotid artery atherosclerosis. Skull and face: Calvarium and visualized facial bones appear intact, without suspicious lesions. Sinuses: Visualized sinuses and mastoids are clear. IMPRESSION: 1. No acute intracranial findings. 2. Prior infarct of the left frontoparietal region and the right parieto-occipital lobe. The similar in extent to the comparison study dated 03/29/19. Of note, acute or subacute on chronic infarct cannot be excluded. If further characterization is warranted, noncontrast MRI of the brain could be used to evaluate for acute or subacute infarct. 3. Extensive findings likely associated with chronic microvascular ischemic changes. Dictated by: Darlin Hamilton M.D. on 05/23/2019 at 7:33 Approved by: Darlin Hamilton M.D. on 05/23/2019 at 7:35 ECG Data Attestation: I personally reviewed and interpreted this ECG as follows: Prior ECG tracings: available for review Interpretation: Sinus rhythm rate 67 p.r. interval [address] elevation depression or T-wave inversion low voltage noted but similar to EKGs MDM Narrative Medical decision making narrative: Patient unable to cooperate for NIH stroke scale Patient initially awake and alert verbal and not following commands. As time has gone on he is responsive following commands and speaking. I re-evaluated him any actually had some shaking of his left leg but responding and awake during this time. His prolactin is slightly elevated may be possible seizure. I actually spoke with his son Que who states that he has had few episodes over the past few months of this non responsiveness. Previously admitted for TIAs. Not convinced it's TIA possible UTI is a chronic indwelling Meyer catheter however he does does not appear septic he has no white count or fever procalcitonin is negative. He is empirically covered with Rocephin he does have drug resistant so will wait for culture and sensitivity. I called and spoke with Dr. Trimble, who agrees with admission. Discharge Plan Departure Patient Disposition: Admitted as Observation Clinical Impression: Acute metabolic encephalopathy Discharge Date/Time: 05/23/19 10:37 Admit Date/Time: 05/23/19 10:02 Admit Provider: Ael Trimble
[2019-05-23 08:24] LABS: Add Manual Diff / Slide Review NO; Basophils Absolute Auto 100 /uL (0-100); Basophils Percent Auto 1.3 % (0-2); Eosinophils Absolute Auto 200 /uL (0-450); Eosinophils Percent Auto 2.1 % (2-4); Hematocrit 36.3 % (41-53); Hemoglobin 12.3 g/dL (13.5-17.5); Lymphocytes Absolute Auto 3300 /uL (1100-4500); Lymphocytes Percent Auto 42.6 % (25-40); Mean Corpuscular HGB Conc 33.8 % (30-36); Mean Corpuscular Hemoglobin 32.1 PG (26-34); Mean Corpuscular Volume 94.9 fL (80-100); Monocytes Absolute Auto 600 /uL (0-900); Monocytes Percent Auto 7.4 % (3-14); Neutrophils Absolute Auto 3600 /uL (1500-7000); Neutrophils Percent Auto 46.6 % (50-75); Platelet Count 290 X10^3/uL (150-400); Red Blood Cell Count 3.82 X10^6/uL (4.5-5.9); Red Cell Distribution Width 15.6 % (11.6-14.8); White Blood Cell Count 7.6 X10^3/uL (4.5-11.0)
[2019-05-23 08:28] LABS: INR 1.1 (0.9-1.3); Prothrombin Time 12.4 SECONDS (10.1-12.7)
[2019-05-23 08:31] LABS: PTT Partial Thromboplastin Tim 43 SECONDS (26.4-36.2)
[2019-05-23 08:33] LABS: Alanine Aminotransferase 20 IU/L (<50); Albumin Globulin Ratio 1.4 (1.0-2.8); Alkaline Phosphatase 151 U/L (38-126); Aspartate Aminotransferase 22 IU/L (17-59); BUN Creatinine Ratio 21.7 (6-22); Bilirubin Total 0.6 mg/dL (0.2-1.3); Blood Urea Nitrogen 13 mg/dL (9-20); Calcium 9.4 mg/dL (8.4-10.2); Carbon Dioxide 30 mmol/L (22-32); Chloride 105 mmol/L (98-107); Creatine Kinase 35 U/L (55-170); Estimated Glomerular Filt Rate > 60.0 mL/min (>60); Globulin 2.9 g/dL (1.7-4.1); Glucose 102 mg/dL (80-110); HEMOLYSIS < 15 (0-50); Potassium 4.1 mmol/L (3.4-5.1); Sodium 142 mmol/L (137-145); Total Protein 6.9 g/dL (6.3-8.2)
[2019-05-23] MEDS: SODIUM CHLORIDE 0.9% 1,000 ML 150 ML IV (08:33)
[2019-05-23 08:45] LABS: Troponin I < 0.012 ng/mL (0.01-0.034)
[2019-05-23 08:50] LABS: Procalcitonin < 0.05 ng/mL (<0.5); Prolactin 27.2 ng/mL (3.7-17.9)
[2019-05-23 08:53] LABS: Lactate (Lactic Acid) 1.3 mmol/L (0.7-2.1)
[2019-05-23 08:53] LABS: Appearance Urine UA CLEAR; Bilirubin Urine UA NEGATIVE (NEGATIVE); Color Urine UA YELLOW; Glucose Urine UA NEGATIVE (Negative); Ketones Urine UA NEGATIVE (NEGATIVE); Leukocyte Esterase Urine UA TRACE (NEGATIVE); Nitrite Urine UA POSITIVE (Negative); Occult Blood Urine UA 2+ (Negative); Protein Urine UA 1+ (Negative); pH Urine UA 5.5 (4.5-8.0)
[2019-05-23 09:01] LABS: Bacteria Urine Few (2-10); Culture Indicated Urine Specimen Cultured; RBC Urine 5-10/HPF (0-5/HPF); Squamous Epithelial Cell Urine 0-1 /HPF (0-5/HPF); WBC Urine 1-5/HPF (0-5/HPF)
[2019-05-23 09:05] LABS: Thyroid Stimulating Hormone 3.41 uIU/mL (0.47-4.68)
[2019-05-23 09:29] LABS: B Type Natriuretic Peptide < 100 (<100)
[2019-05-23] MEDS: CEFTRIAXONE 1 GM/50 ML FROZ.PIGGY IV (09:43)
--- NOTE | 2019-05-23 10:06 | PC.NURSE ---
Addendum entered by Frances Patrick R.N. 05/23/19 10:15: Sarah Olivares RN [phone] Original Note: Pt arrived EMS with altered mental status. h/o L sided ischemic stroke with R side hemiparesis at baseline. Facility reports usually awake and oriented. WC bound. Saw Dr Cadena recently for L hand tingling and was dx with possible TIA and was told to f/u in 3 months. Pt unable to follow simple commands. eyes spontaneously open. septic workup collected. attached to cardiac monitoring. indwelling sanders cath with cloudy dark brown drainage. NS infusing per order and rocephin completed. Pt more alert post rocephin infusion. able to verbalize that he needs to use the urinal. advised he has a sanders cath. Said brianna to RN on arrival into room. MARYBEL Olivares at [facility] made aware of pts pending admission. Reports she contacted family and left a message on voicemail.
--- NOTE | 2019-05-23 11:19 | PC.NURSE ---
1045 Pt arrived to room 207 via bed from ED. Pt is awake, alert, Oriented to name, place, where he transfered from. Pt Hx of L CVA, states he has a bad memory. Right side facial droop noted, speech is clear, some word search. Pt c/o bladder discomfort, feels need to push down. 1050 Dr Trimble here at bedside now. Bladder scan completed for 1-90 ml. Irrigated the sanders cath per MD request, 60 ml saline in, 60 ml output immed/clear. Cath changed 1 week ago per MD. Asked if Pt having bladder spasms, Pt states Yes. IVF NS at 25ml/hr at this time. 1125 MD completed her exam, Pt FREDY 2. Pt unable to raise RLE, has a splint to r hand/wrist for support/ prevent contractures. Pt is ,pleasant, cooperative. Skin is clean/dry, intact. Pt has a brief on, slightly pinkened area on buttocks. 1145 Pt resting in bed. denies pain other than occasional bladder discomfort.
--- NOTE | 2019-05-23 11:26 | P.HP_ITS ---
History of Present Illness History of Present Illness Date Patient Seen: 05/23/19 Time Patient Seen: 11:26 Chief complaint: Possible Stroke Narrative: Patient is a very pleasant 68-year-old male resident of [facility] who was brought in this morning because staff found him unable to talk or respopnd to commands. He was sitting up awake in the ED but would not respond to commands. The symptoms cleared with treatment in the emergency department of fluids and ceftriaxone. He has an indwelling Meyer catheter for urethral stricture that was changed by his urologist on May 15. He reports that he feels pressure in his lower abdomen like he has to urinate or take a dump. This pressure is relieved with Meyer irrigation. He tells me that he has been battling urinary tract infections for the past year. He also reports today that he has spasms after any intentional movement. He finds this most frustrating. He has his right upper extremity in a wrist splint and tells me that his thumb needs to be away from his fingers and it is not right now. He has spasticity which has responded some to baclofen. He has no other complaints. He does have spasming of his right extremities and has not had his baclofen this morning. Family arrives and indicate that patient is at baseline. He is animated with familiy present. They tell me that he is at baseline. Patient History Medical History Cataract (Chronic) Diabetes mellitus (Chronic ~2012) Diverticulitis (Chronic ~2013) Hyperlipidemia (Chronic ~2013) Stroke (Chronic ~2014) Urinary retention (Acute) Surgical History Anesthesia (Resolved) History of tonsillectomy Family & Social History Family History Father Dementia Sister Age: 64 Acute ischemic stroke Safety & Behavioral: Feels Safe in Current Unwilling to Answer Environment Been Physically Hurt or Unwilling to Answer Threatened By a Person Tobacco & Substance use: Smoking Status Smoker, status unknown Substance Use Type does not use Meds Home Medications and Allergies Home Medications Medication Instructions Recorded Confirmed Type baclofen 20 - 40 mg PO BID 03/29/19 05/23/19 History water for irrigation, sterile 60 ml IRR .COMPLEX #1000 ml 04/30/19 05/23/19 Rx nitrofurantoin macrocrystal 50 mg 50 mg PO BEDTIME #30 cap 05/04/19 05/23/19 Rx capsule acetaminophen 325 mg tablet 325 - 650 mg PO Q4HP PRN #60 tab 05/16/19 05/23/19 Rx atorvastatin 40 mg tablet 40 mg PO DAILY #90 tab 05/16/19 05/23/19 Rx bupropion HCl 150 mg tablet,12 hr 150 mg PO BID #180 tab 05/16/19 05/23/19 Rx sustained-release metformin 500 mg tablet 500 mg PO BID #180 tab 05/16/19 05/23/19 Rx Allergies Allergy/AdvReac Type Severity Reaction Status Date / Time Penicillins Allergy Unknown Verified 05/23/19 09:38 Review of Systems Review of Systems Narrative: A complete review of systems was negative except for the elements described in the HPI. Genitourinary Genitourinary: Reports difficulty urinating Exam Vital Signs (past 8 hours): - 05/23/19 08:14 05/23/19 09:00 05/23/19 09:30 Temperature 97.4 F L Pulse Rate 68 69 78 Respiratory Rate 16 14 16 Blood Pressure 153/78 H Blood Pressure [Right Arm] 137/79 143/90 H Pulse Oximetry 94 97 97 05/23/19 10:00 Temperature Pulse Rate 75 Respiratory Rate 21 Blood Pressure Blood Pressure [Right Arm] 137/83 Pulse Oximetry 98 Oxygen Delivery Method Room Air Narrative Exam Narrative: General: Well-developed, well-nourished, male, no acute distress. Heart: Regular rate and rhythm, no murmurs appreciated Lungs: Clear anteriorly Extremities: Warm and well perfused, no edema, contractures of the right upper extremity Neuro: right sided facial droop and right sided paresis, oriented to self, knows he's not at home, remembers he had catheter exchange last week Objective Imaging Chest x-ray: Radiologist's impression: IMPRESSION: 1. Spiculated right lower lung mass suspicious for neoplasm. CT of the chest recommended to further characterize this finding. 2. Interstitial prominence and cardiomegaly which may be associated with fluid overload or congestive failure. Labs Result Diagrams: 05/23/19 08:05 05/23/19 08:05 Labs: Laboratory Results - last 24 hr 12/05/23/19 05/23/19 08:05 08:05 08:05 WBC 7.6 RBC 3.82 L Hgb 12.3 L Hct 36.3 L MCV 94.9 MCH 32.1 MCHC 33.8 RDW 15.6 H Plt Count 290 Neut % (Auto) 46.6 L Lymph % (Auto) 42.6 H Harper % (Auto) 7.4 Eos % (Auto) 2.1 Baso % (Auto) 1.3 Neut # (Auto) 3600 Lymph # (Auto) 3300 Harper # (Auto) 600 Eos # (Auto) 200 Baso # (Auto) 100 PT 12.4 INR 1.1 APTT 43 H D Sodium 142 Potassium 4.1 Chloride 105 Carbon Dioxide 30 BUN 13 Creatinine 0.60 L Estimated GFR > 60.0 BUN/Creatinine Ratio 21.7 Glucose 102 Lactate Calcium 9.4 Total Bilirubin 0.6 AST 22 ALT 20 Alkaline Phosphatase 151 H Total Creatine Kinase 35 L CK-MB (CK-2) TNP CK-MB (CK-2) Rel Index TNP Troponin I < 0.012 B-Natriuretic Peptide Total Protein 6.9 Albumin 4.0 Globulin 2.9 Albumin/Globulin Ratio 1.4 Procalcitonin TSH Prolactin 27.2 H Urine Color Urine Appearance Urine pH Ur Specific [place] Urine Protein Urine Glucose (UA) Urine Ketones Urine Occult Blood Urine Nitrate Urine Bilirubin Urine Urobilinogen Ur Leukocyte Esterase Urine RBC Urine WBC Ur Squamous Epith Cells Urine Bacteria Ur Culture Indicated? 05/23/19 05/23/19 05/23/19 08:05 08:05 08:05 WBC RBC Hgb Hct MCV MCH MCHC RDW Plt Count Neut % (Auto) Lymph % (Auto) Harper % (Auto) Eos % (Auto) Baso % (Auto) Neut # (Auto) Lymph # (Auto) Harper # (Auto) Eos # (Auto) Baso # (Auto) PT INR APTT Sodium Potassium Chloride Carbon Dioxide BUN Creatinine Estimated GFR BUN/Creatinine Ratio Glucose Lactate Calcium Total Bilirubin AST ALT Alkaline Phosphatase Total Creatine Kinase CK-MB (CK-2) CK-MB (CK-2) Rel Index Troponin I B-Natriuretic Peptide < 100 Total Protein Albumin Globulin Albumin/Globulin Ratio Procalcitonin < 0.05 TSH 3.41 Prolactin Urine Color Urine Appearance Urine pH Ur Specific [place] Urine Protein Urine Glucose (UA) Urine Ketones Urine Occult Blood Urine Nitrate Urine Bilirubin Urine Urobilinogen Ur Leukocyte Esterase Urine RBC Urine WBC Ur Squamous Epith Cells Urine Bacteria Ur Culture Indicated? 05/23/19 05/23/19 08:11 08:15 WBC RBC Hgb Hct MCV MCH MCHC RDW Plt Count Neut % (Auto) Lymph % (Auto) Harper % (Auto) Eos % (Auto) Baso % (Auto) Neut # (Auto) Lymph # (Auto) Harper # (Auto) Eos # (Auto) Baso # (Auto) PT INR APTT Sodium Potassium Chloride Carbon Dioxide BUN Creatinine Estimated GFR BUN/Creatinine Ratio Glucose Lactate 1.3 Calcium Total Bilirubin AST ALT Alkaline Phosphatase Total Creatine Kinase CK-MB (CK-2) CK-MB (CK-2) Rel Index Troponin I B-Natriuretic Peptide Total Protein Albumin Globulin Albumin/Globulin Ratio Procalcitonin TSH Prolactin Urine Color Yellow Urine Appearance Clear Urine pH 5.5 Ur Specific [place] 1.020 Urine Protein 1+ H Urine Glucose (UA) Negative Urine Ketones Negative Urine Occult Blood 2+ H Urine Nitrate Positive Urine Bilirubin Negative Urine Urobilinogen 1.0 Ur Leukocyte Esterase Trace H Urine RBC 5-10/hpf H Urine WBC 1-5/hpf Ur Squamous Epith Cells 0-1 /hpf Urine Bacteria Few (2-10) H Ur Culture Indicated? Specimen cultured Assessment & Plan Assessment & Plan narrative: 68 yo male with history of left sided CT scan brought in by EMS because of ataxia and expressive aphasia both of which seem to have resolved with time, fluids and antibiotics. This appears to be a second episode of this with the last occuring on , thought to be TIA. Spasms vs seizure. He was able to stop the shaking in his limbs voluntarily so I think seizure is less likely. Prolactin likely more of stress response. Will certainly monitor. Will give him baclofen as soon as he passes a bedside swallow evaluation. Urinary tract infection. No fever or elevated WBC. Symptoms improve with irrigation. He is likely colonnized. Patient did improve with hydration and antibiotics. Reviewed medication record and patient completed 10 day course of nitrofurantoin for his last UTI Per notes here he was given ciprofloxacin for 10 days on 05/04. This is not on his medication record from [facility]. Will request his medication administration regimen. Has phenazopyridine on med list and it's unclear if he has been taking this. REcords arrive and he hasn't had it recently so will continue this. Spiculated right sided lung mass on chest xray. Patient and family decline further workup with chest CT at this time. Depression. continue bupropion for now. Diabetes. Has been well controlled. Continue with metformin. No need for glucose checks unless he exhibits symptoms. Code status: DNR DVT prophylaxis: lovenox Given patient's history of TIA and presentation he bears observation for the next 24 hours. Anticipate discharge back to [facility] tomorrow.
[2019-05-23] MEDS: BACLOFEN 10 MG TABLET 20 MG PO ×2 (12:59→20:13)
[2019-05-23] MEDS: PHENAZOPYRIDINE 100 MG TABLET 200 MG PO ×2 (14:21→20:13)
--- NOTE | 2019-05-23 14:27 | CM.DPNOTE ---
DCP Note: Patient is a resident of [facility] and was admitted today and therefore not yet assigned to [facility] as of today but per RN and MD pt likely will be stable for d/c back to [facility] tomorrow (05/24/19) and family plans to be bedside tomorrow with pt's wheelchair from [facility] and will transport him back when he is discharged. SW called Sarah Olivares RN ([phone]) with this update and she confirms that since pt will only be admitted for about 24 hrs then bedside assessment not needed and confirmed family approved for transport home. SW will just need to fax the typical signed med rec and d/c summary when available if pt remains stable for discharge tomorrow. GOYO Aviles
--- NOTE | 2019-05-23 19:48 | PC.NURSE ---
Addendum entered by Mariella Lynch R.N. 05/23/19 20:24: Patient ate some applesauce with bedtime meds. Original Note: Patient resting in bed, patient at baseline mental status. Patient has been calm and cooperative. Refused dinner, stated hes not hungry, offered alternative but patient refused at this time.
[2019-05-23] MEDS: buPROPion SR 150 MG TAB PO (20:13)
[2019-05-23] MEDS: METFORMIN HCL 500 MG TABLET PO (20:13)
[2019-05-23] MEDS: NITROFURANTOIN 50 MG CAPSULE PO (20:13)
[2019-05-23] MEDS: SENNOSIDES 8.6 MG TABLET 17.2 MG PO (20:13)
[2019-05-24 03:45] VITALS: BP 124/78; PULSE 84; RESP 20; TEMP 36.9; O2SAT 95
[2019-05-24] MEDS: ACETAMINOPHEN 325 MG TABLET 650 MG PO ×2 (03:51→10:59)
[2019-05-24 07:40] VITALS: BP 152/95; PULSE 77; RESP 17; TEMP 36.1; O2SAT 96
[2019-05-24 08:00] VITALS: O2SAT 97
[2019-05-24] MEDS: METFORMIN HCL 500 MG TABLET PO (08:38)
[2019-05-24] MEDS: BACLOFEN 10 MG TABLET 20 MG PO (08:38)
[2019-05-24] MEDS: ENOXAPARIN 40 MG/0.4 ML SYRINGE SUBCUT (08:38)
[2019-05-24] MEDS: buPROPion SR 150 MG TAB PO (08:38)
[2019-05-24] MEDS: PHENAZOPYRIDINE 100 MG TABLET 200 MG PO (08:40)
[2019-05-24] MEDS: CEFTRIAXONE 1 GM/50 ML FROZ.PIGGY IV (10:05)
--- NOTE | 2019-05-24 10:18 | PC.NURSE ---
Addendum entered by Ghazal Shankar R.N. 05/24/19 13:44: DC - reviewed dc instructions with pt, placed in folder for [facility], called report to nurse Esau at [facility], pt assist x2 to his own wc,when family arrived, belongings are packed, wearing shoes, small bag,no other clothing, given warm blankets, assistant sales manager assisted downstairs and family will transport accross to [facility]. Original Note: AM NOTE - pt is alert at bedside shift report, oriented, has weak r side, speech is slurred, appropriate w/r side droop hx previous cva, wearing wrist brace r wrist, unable to move rle, does have random uncontrolled lle movements at times, sanders w/orange tinted urine, some generalized discomfort at times, given scheduled baclofen and had tylenol earlier for discomfort, hr 84, ra 97%.
--- NOTE | 2019-05-24 10:25 | CM.DANOTE ---
Addendum entered by GOYO Aviles 05/24/19 13:23: ADD: Cuca RN at [facility] completed bedside assessment with pt as he had been admitted a little over 24 hours ago and no concerns with accepting pt back today. Per , pt now medically stable to d/c back to Assisted Living and wrote d/c orders. tester operator called pt's Dtr inlaw and updated on d/c and she is on her way to transport the pt back to [facility]. SW faxed d/c summary, med rec, and MD orders to [facility] to review for d/c back today. BF Original Note: Patient is a 68 year old male who was admitted OBS STATUS on 05/23/19 for Possible Stroke. Pt has MCR and [employer] for insurance and his PCP is Dr. Cadena. EMR was reviewed. Per MD, pt has recent hx of likely TIA and has indwelling sanders cath at baseline with hx of multiple UTI's. Pt to have a last dose of IV-Abx this morning before d/c back to Assisted Living this afternoon. SW met bedside with pt and explained role and pt alert and oriented and confirms that he lives at [facility] and is mostly w/c bound at baseline. Pt denies any recent hx of HH or SNF and has not had to be admitted to the hospital since living at [facility]. Pt has local supportive family who will be bedside later today and will still provide transport back to [facility] via pt's personal w/c. Pt does not have any questions or concerns at this time but states Dtr inlaw will be bedside later today and may have questions. DIAZ called Sarah RN ([phone]) and updated on likely pt d/c this afternoon via personal w/c by family and that d/c summary and med rec will be faxed for their review prior to pt d/c. Sarah RN confirms they are anticipating his d/c back today and no concerns or need for bedside assessment. DIAZ provided the Sarah RN # to call for RN to RN report on the pt. Plan: SW to follow for pt d/c after final dose of IV-Abx this morning and family to arrive for transport back to [facility]. GOYO Aviles Discharge Planning/Care Management CM Discharge Assessment Start: 05/24/19 10:22 Freq: Status: Active Protocol: Document 05/24/19 10:22 BF (Rec: 05/24/19 10:25 BF [id number]) Discharge Planning Assessment Assigned Child Care Assistant GOYO Jiménez Advance Directives? Yes: POLST History Provided By Patient,Medical Record Has Patient been admitted in last 30 No days? Prior Living Arrangements Assisted Living Type of transporation used prior to Relies on Others admit Facility Name Admitted From: [facility] Willing to Return to Facility? Yes Independent with ADL's No: receives some assist Is patient alert and oriented? Yes Needs Assistance With Bathing,Meal Prep,Managing Medications,Home Chores / Shopping Caregiver for Another No DME Already Rented / Owned Wheelchair Comment Return to [facility] Barriers to Discharge No Discharge Plan Assisted Living Facility Transportation Arrangement Family brought over pt's personal w/c and plan to transport him back home to [facility] at d/c. Referrals Initiated None needed Whiteboard Updated in Patient Room with Yes name and ext. # of Child Care Assistant Review Status In Process Please Provide Date Initial DC 05/24/19 Assessment Was Performed Next Review Type Continued Stay Review
--- NOTE | 2019-05-24 11:32 | P.DS_ITS ---
History of Present Illness History of Present Illness Chief complaint: Possible Stroke Narrative: Patient is a very pleasant 68-year-old male resident of [facility] who was brought in this morning because staff found him unable to talk or respopnd to commands. He was sitting up awake in the ED but would not respond to commands. The symptoms cleared with treatment in the emergency department of fluids and ceftriaxone. He has an indwelling Meyer catheter for urethral stricture that was changed by his urologist on May 15. He reports that he feels pressure in his lower abdomen like he has to urinate or take a dump. This pressure is relieved with Meyer irrigation. He tells me that he has been battling urinary tract infections for the past year. He also reports today that he has spasms after any intentional movement. He finds this most frustrating. He has his right upper extremity in a wrist splint and tells me that his thumb needs to be away from his fingers and it is not right now. He has spasticity which has responded some to baclofen. He has no other complaints. He does have spasming of his right extremities and has not had his baclofen this morning. Family arrives and indicate that patient is at baseline. He is animated with familiy present. They tell me that he is at baseline. Discharge Providers Provider Date of admission: 05/23/19 10:02 Discharge Date: 05/24/19 Primary care physician: Zeb Cadena MD Discharge provider: Ale Trimble DO Summary Hospital Course Discharge Diagnosis: TIA Muscle spasms Bladder spasms, indwelling for urethral stricture Diabetes, well controlled Lung mass Hospital Course: 68 yo male with history of left sided CVA brought in by EMS because of ataxia and expressive aphasia both of which have resolved with time, fluids and antibiotics. This is at least a second episode with the last occuring on , thought to be TIA. Will have him continue on 325 mg of aspirin for now. Spasms vs seizure. He was able to stop the shaking in his limbs voluntarily so I think seizure is less likely. Prolactin likely more of stress response. No further episodes overnight. Resumed baclofen. Unclear what dose he is getting at [facility]. It's written to titrate. He has follow up appointment with Dr. Jacobsen on 06/06/2019 to follow up on this. Urinary retention is a side effect of baclofen but should not be a problem with the catheter. Urinary tract infection vs bladder spasm. No fever or elevated WBC. Symptoms improve with irrigation. He is likely colonized. Patient did improve with hydration and antibiotics. Reviewed medication record from [facility] and patient completed 10 day course of nitrofurantoin for his last UTI. Was due for post abx check. No growth on urine for 24 hours. Has phenazopyridine on med list but had not received this is quite some time. Restarted here for the next few days. Discussed case with urology and they recommend oxybutinin ER 10 mg daily. Started that today and urology sent rx to pharmacy to be continued after discharge. Spiculated right sided lung mass on chest xray. Patient and family decline further workup with chest CT at this time. Depression. continue bupropion. Diabetes. Has been well controlled. Continue with metformin. No need for glucose checks unless he exhibits symptoms. Code status: DNR DVT prophylaxis: lovenox Status at Discharge Cognitive/behavioral status at discharge: at baseline, oriented Functional status at discharge: wheelchair bound Overall status at discharge: patient is back to baseline Time Spent with Patient Time spent: Greater than 30 minutes Exam Vital Signs (past 8 hours): - 05/24/19 03:45 05/24/19 07:40 05/24/19 08:00 Temperature 98.4 F 97 F L Pulse Rate 84 77 Respiratory Rate 20 17 Blood Pressure 124/78 152/95 H Pulse Oximetry 95 96 97 Oxygen Delivery Method Room Air Oxygen Flow Rate 0 Narrative Exam Narrative: General: Well-developed, well-nourished, male, no acute distress. Heart: Regular rate and rhythm, no murmurs appreciated Lungs: Clear tp auscultation bilaterally, no wheezes, rales, ronchi Extremities: Warm and well perfused, no edema, contractures of the right upper extremity Neuro: right sided facial droop and right sided paresis, oriented to self Objective Labs Result Diagrams: 05/23/19 08:05 05/23/19 08:05 Discharge Plan Discharge Plan [facility]: Wheelchair Discharge orders & Medications Discharge Orders: Discharge (Order); Ordered 05/24/19 Ordered By: Ale Trimble Prescriptions: New phenazopyridine 100 mg Tablet 200 mg PO TID 3 Days Qty: 6 RF: 0 oxybutynin chloride [Ditropan XL] 5 mg Tablet Extended Release 24hr 10 mg PO DAILY 30 Days Qty: 60 RF: 0 Continued water for irrigation, sterile [Aqua Care Sterile Water] Solution 60 ml IRR .COMPLEX Qty: 1000 RF: 3 nitrofurantoin macrocrystal [Macrodantin] 50 mg capsule 50 mg PO BEDTIME Qty: 30 RF: 0 acetaminophen 325 mg tablet 325 - 650 mg PO Q4HP PRN (Reason: fever or pain) Qty: 60 RF: 3 atorvastatin 40 mg tablet 40 mg PO DAILY Qty: 90 RF: 1 metformin [Glucophage] 500 mg tablet 500 mg PO BID Qty: 180 RF: 1 bupropion HCl [Wellbutrin SR] 150 mg tablet sustained-release 12 hr 150 mg PO BID Qty: 180 RF: 1 baclofen 20 mg tablet 20 - 40 mg PO BID RF: 0 Follow up/Referrals: Zeb Cadena MD [Primary Care Provider] - 1 Week (assisted living to make james ointment) Jennifer Olmstead MD [Non-Staff] - 2 Weeks (assisted living to make appointment) Discharge Health Status Multidrug resistant organism: No MDRO Precautions: [place] Diet/Activity/Treatments Diet: Diet as Tolerated Liquid consistency: Normal/Thin Food texture: Regular Catheter: 2-way Meyer and Irrigant/I[facility] Restrictions to mobility: wheelchair bound Visit Report/Discharge Packet Instructions: DI for Urinary Retention in Men, DI for Encephalopathy Discharge Data Primary Care Provider: Zeb Cadena Attending Provider: Ale Trimble Admit Date/Time: 05/23/19 10:02 Discharges patient from system. Discharge Date/Time: 05/24/19 13:30
[2019-05-24 11:35] VITALS: BP 130/69; PULSE 84; RESP 17; TEMP 36.6; O2SAT 95
[2019-05-24 12:07] VITALS: O2SAT 96
[2019-05-24] MEDS: OXYBUTYNIN 5 MG ER TAB 10 MG PO (12:15)
== END 2019-05-24 13:30 ==
LOC: ED 09:57 → AC 10:03
PROVIDERS: Admitting Provider Family Medicine; Emergency Provider Emergency Medicine; PCP Family Medicine; Visit Provider Family Medicine
DX: G45.9 Transient cerebral ischemic attack, unspecified (principal); R41.82 Altered mental status, unspecified; I69.951 Hemiplegia and hemiparesis following unspecified cerebrovascular disease affecting right dominant side; E11.9 Type 2 diabetes mellitus without complications; E78.5 Hyperlipidemia, unspecified; R33.9 Retention of urine, unspecified; Z79.84 Long term (current) use of oral hypoglycemic drugs; M62.838 Other muscle spasm; N32.89 Other specified disorders of bladder; R91.8 Other nonspecific abnormal finding of lung field
CPT/HCPCS: 36415; 70450; 71045; 80053; 81001; 82550; 82962; 83605; 83880; 84145; 84146; 84443; 84484; 85025; 85610; 85730; 87040; 87086; 93005; 96361; 96365; 96366; 96372; 99217; 99220; 99285; G0378; J1650

== ENCOUNTER → 2019-06-27 11:58 | Outpatient (CLI) | payer MEDICARE, SELFPAY ==
[2019-05-23 10:23] VITALS: BMI 23.7
[2019-06-27 12:51] LABS: Hemoglobin A1C% w Est Avg Glu 5.8 % (4.0-6.0)
[2019-06-27 12:53] LABS: BUN Creatinine Ratio 17.5 (6-22); Blood Urea Nitrogen 14 mg/dL (9-20); Calcium 9.8 mg/dL (8.4-10.2); Carbon Dioxide 30 mmol/L (22-32); Chloride 101 mmol/L (98-107); Estimated Glomerular Filt Rate > 60.0 mL/min (>60); Glucose 137 mg/dL (80-110); HEMOLYSIS < 15 (0-50); Potassium 3.3 mmol/L (3.4-5.1); Sodium 145 mmol/L (137-145)
== END ==
PROVIDERS: PCP Family Medicine; Visit Provider Family Medicine
DX: E11.9 Type 2 diabetes mellitus without complications (principal)
CPT/HCPCS: 36415; 80048; 83036

== ENCOUNTER 2019-07-04 17:49 | Emergency (ER) | payer MEDICARE, SELFPAY ==
[2019-05-23 10:23] VITALS: BMI 23.7
--- NOTE | 2019-07-04 17:51 | DI.CT.S_ITS ---
PROCEDURE: CT HEAD/BRAIN WO CON INDICATIONS: not responding, aphasia, concern forcva non TPA candidate TECHNIQUE: Noncontrast 4.5 mm thick angled axial sections acquired from the foramen magnum to the vertex, with coronal and sagittal reformats. For radiation dose reduction, the following was used: automated exposure control, adjustment of mA and/or kV according to patient size. COMPARISON: [facility], CT, CT HEAD/BRAIN WO CON, 05/23/2019, 8:14. [facility], CT, CT HEAD/BRAIN WO CON, 03/29/2019, 10:53. FINDINGS: Image quality: Excellent. CSF spaces: Basal cisterns are patent. No extra-axial fluid collections. The ventricles are symmetric in size and shape. Brain: No intracranial bleeds or masses. There is cerebral volume loss for age, with resultant ventricular and sulcal prominence. Note is made of a left-sided encephalomalacia within the left middle cerebral artery vascular distribution, chronic in appearance. An additional smaller area of right medial parietal occipital encephalomalacia measuring approximately 2 cm diameter is seen, also previously present. There are periventricular and deep white matter chronic small vessel ischemic changes. There is intracranial internal carotid artery atherosclerosis. Skull and face: Calvarium and visualized facial bones appear intact, without suspicious lesions. Sinuses: Visualized sinuses and mastoids are clear. IMPRESSION: Prior bilateral strokes, larger on the left than the right, stable over time. No new ischemic injury is found. No intracranial hemorrhage identified. Dictated by: Carroll Nayak M.D. on 07/04/2019 at 18:12 Approved by: Carroll Nayak M.D. on 07/04/2019 at 18:13
[2019-07-04 18:11] LABS: Add Manual Diff / Slide Review NO; Basophils Absolute Auto 100 /uL (0-100); Basophils Percent Auto 0.7 % (0-2); Eosinophils Absolute Auto 300 /uL (0-450); Eosinophils Percent Auto 2.7 % (2-4); Hemoglobin 11.4 g/dL (13.5-17.5); Lymphocytes Absolute Auto 3500 /uL (1100-4500); Lymphocytes Percent Auto 35.8 % (25-40); Mean Corpuscular HGB Conc 33.5 % (30-36); Mean Corpuscular Hemoglobin 32.3 PG (26-34); Mean Corpuscular Volume 96.3 fL (80-100); Monocytes Absolute Auto 800 /uL (0-900); Monocytes Percent Auto 8.2 % (3-14); Neutrophils Absolute Auto 5200 /uL (1500-7000); Neutrophils Percent Auto 52.6 % (50-75); Platelet Count 316 X10^3/uL (150-400); Red Blood Cell Count 3.53 X10^6/uL (4.5-5.9); Red Cell Distribution Width 15.7 % (11.6-14.8); White Blood Cell Count 9.9 X10^3/uL (4.5-11.0)
[2019-07-04 18:18] LABS: INR 1.1 (0.9-1.3); Prothrombin Time 12.9 SECONDS (10.1-12.7)
[2019-07-04 18:20] LABS: PTT Partial Thromboplastin Tim 39 SECONDS (26.4-36.2)
--- NOTE | 2019-07-04 18:20 | ED.GENADULT ---
HPI - General Adult General Chief complaint: Neuro Symptoms/Deficit Stated complaint: Stroke Time Seen by Provider: 07/04/19 17:51 Source: EMS Mode of arrival: EMS Limitations: altered mental status History of Present Illness HPI narrative: Patient is a 68-year-old male. Initially arrived by EMS is a code stroke. Report was that patient was last seen normal at 2 in the afternoon. At approximately 1715 hours he was noticed to be altered. Arrived here after 3 hours however before 4-1/2 hours of last known normal. Patient has had a stroke in the past. Unknown if he is on blood thinners. Related Data Previous Rx's Medication Instructions Recorded water for irrigation, sterile 60 ml IRR .COMPLEX #1000 ml 04/30/19 atorvastatin 40 mg tablet 40 mg PO DAILY #90 tab 05/16/19 bupropion HCl 150 mg tablet,12 hr 150 mg PO BID #180 tab 05/16/19 sustained-release metformin 500 mg tablet 500 mg PO BID #180 tab 05/16/19 acetaminophen 325 mg tablet 325 - 650 mg PO Q4HP PRN #60 tab 06/06/19 nitrofurantoin macrocrystal 50 mg 50 mg PO BEDTIME #30 cap 06/15/19 capsule baclofen 20 mg tablet 20 mg PO .COMPLEX #60 tab 06/20/[address] #1 each 06/27/19 Allergies Allergy/AdvReac Type Severity Reaction Status Date / Time Penicillins Allergy Unknown Verified 06/27/19 11:07 Review of Systems Review of Systems ROS Unobtainable: Unobtainable due to mental status/LOC Patient History Medical History Cataract (Chronic) Diabetes mellitus (Chronic ~2012) Diverticulitis (Chronic ~2013) Hyperlipidemia (Chronic ~2013) Stroke (Chronic ~2014) Urinary retention (Acute) Social History Smoking Status: Former smoker Smoking Status: Smoker, status unknown Substance Use Type: does not use Exam Initial Vital Signs Initial Vital Signs: Vital Signs Temperature 98.1 F 07/04/19 18:24 Pulse Rate 98 H 07/04/19 18:24 Respiratory Rate 18 07/04/19 18:24 Blood Pressure 163/78 H 07/04/19 18:24 Pulse Oximetry 98 07/04/19 18:24 Const Limitations: altered mental status HENMT Head: normal to inspection and normocephalic Resp Effort & Inspection: normal respiratory effort Auscultation: clear to auscultation bilaterally Cardio Rate: regular rate Rhythm: regular rhythm GI Inspection: non-distended Palpation: soft Skin Lesions: no lesions Rashes: no rashes Neuro General: not alert, awake, not oriented x3 and does not move all extremities Speech: expressive aphasia Extrem Other: Right arm in a brace. Does not move any extremities spontaneously. Psych Appearance: grossly normal and well kempt Scores GCS [place] coma scale eye opening: Spontaneous [place] coma scale verbal response: None [place] coma scale motor response: None [place] coma scale total score: 6 Course Orders Ordered: ED Orders 07/04/19 17:51 CT head/brain wo con Stat EKG-12 Lead Stat 07/04/19 18:01 Ammonia (NH3) Stat Basic Metabolic Panel Stat Complete Blood Count AUTO DIFF Stat Partial Thromboplastin Time Stat Prolactin Stat Prothrombin Time INR Stat Troponin I Stat Discontinued Medications Sodium Chloride (Normal Saline 0.9%) 1,000 mls @ 150 mls/hr IV CONT SOTO Last Admin: 07/04/19 19:28 Dose: Not Given Documented by: JAYE Vital Signs Vital signs: Vital Signs - 8 hr 07/04/19 18:24 07/04/19 18:30 07/04/19 19:32 Temperature 98.1 F Pulse Rate 98 H 69 78 Respiratory Rate 18 18 18 Blood Pressure 163/78 H Blood Pressure [Left Arm] 159/94 H 157/70 H Pulse Oximetry 98 98 98 Medical Decision Making Lab Data Lab results reviewed: Yes I reviewed the patient's lab results. Result diagrams: 07/04/19 18:01 07/04/19 18:01 Labs: Lab Results 07/04/19 07/04/19 07/04/19 Range/Units 18:01 18:01 18:01 WBC 9.9 (4.5-11.0) X10^3/uL RBC 3.53 L (4.5-5.9) X10^6/uL Hgb 11.4 L (13.5-17.5) g/dL Hct 34.0 L (41-53) % MCV 96.3 (80-100) fL MCH 32.3 (26-34) PG MCHC 33.5 (30-36) % RDW 15.7 H (11.6-14.8) % Plt Count 316 (150-400) X10^3/uL Neut % (Auto) 52.6 (50-75) % Lymph % (Auto) 35.8 (25-40) % [place] % (Auto) 8.2 (3-14) % Eos % (Auto) 2.7 (2-4) % Baso % (Auto) 0.7 (0-2) % Neut # (Auto) 5200 (4184-8159) /uL Lymph # (Auto) 3500 (6652-8569) /uL [place] # (Auto) 800 (0-900) /uL Eos # (Auto) 300 (0-450) /uL Baso # (Auto) 100 (0-100) /uL PT 12.9 H (10.1-12.7) SECONDS INR 1.1 (0.9-1.3) APTT 39 H D (26.4-36.2) SECONDS Sodium 143 (137-145) mmol/L Potassium 3.6 (3.4-5.1) mmol/L Chloride 102 (98-107) mmol/L Carbon Dioxide 29 (22-32) mmol/L BUN 15 (9-20) mg/dL Creatinine 0.60 L (0.66-1.25) mg/dL Estimated GFR > 60.0 (>60) mL/min BUN/Creatinine Ratio 25.0 H (6-22) Glucose 127 H (80-110) mg/dL Calcium 9.3 (8.4-10.2) mg/dL Ammonia (9-30) umol/L Troponin I < 0.012 (0.01-0.034) ng/mL Prolactin (3.7-17.9) ng/mL 07/04/19 07/04/19 Range/Units 18:01 18:01 WBC (4.5-11.0) X10^3/uL RBC (4.5-5.9) X10^6/uL Hgb (13.5-17.5) g/dL Hct (41-53) % MCV (80-100) fL MCH (26-34) PG MCHC (30-36) % RDW (11.6-14.8) % Plt Count (150-400) X10^3/uL Neut % (Auto) (50-75) % Lymph % (Auto) (25-40) % [place] % (Auto) (3-14) % Eos % (Auto) (2-4) % Baso % (Auto) (0-2) % Neut # (Auto) (5435-0913) /uL Lymph # (Auto) (2618-0207) /uL [place] # (Auto) (0-900) /uL Eos # (Auto) (0-450) /uL Baso # (Auto) (0-100) /uL PT (10.1-12.7) SECONDS INR (0.9-1.3) APTT (26.4-36.2) SECONDS Sodium (137-145) mmol/L Potassium (3.4-5.1) mmol/L Chloride (98-107) mmol/L Carbon Dioxide (22-32) mmol/L BUN (9-20) mg/dL Creatinine (0.66-1.25) mg/dL Estimated GFR (>60) mL/min BUN/Creatinine Ratio (6-22) Glucose (80-110) mg/dL Calcium (8.4-10.2) mg/dL Ammonia < 9 L (9-30) umol/L Troponin I (0.01-0.034) ng/mL Prolactin 20.8 H (3.7-17.9) ng/mL Imaging Data CT scan - head: Radiologist's Impression: [place] [address] CT Scan Report Signed Patient: Aftab Irizarry KMR#: [id number] : 9Acct:[id number] Age/Sex: 68 / MDate of Service: 07/04/19 Loc: ED Accession Number: [id number] Procedure: CT head/brain wo con Ordering Provider: aTnya Haider D.O. PROCEDURE: CT HEAD/BRAIN WO CON INDICATIONS: not responding, aphasia, concern forcva non TPA candidate TECHNIQUE: Noncontrast 4.5 mm thick angled axial sections acquired from the foramen magnum to the vertex, with coronal and sagittal reformats. For radiation dose reduction, the following was used: automated exposure control, adjustment of mA and/or kV according to patient size. COMPARISON: [facility], CT, CT HEAD/BRAIN WO CON, 05/23/2019, 8:14. [facility], CT, CT HEAD/BRAIN WO CON, 03/29/2019, 10:53. FINDINGS: Image quality: Excellent. CSF spaces: Basal cisterns are patent. No extra-axial fluid collections. The ventricles are symmetric in size and shape. Brain: No intracranial bleeds or masses. There is cerebral volume loss for age, with resultant ventricular and sulcal prominence. Note is made of a left-sided encephalomalacia within the left middle cerebral artery vascular distribution, chronic in appearance. An additional smaller area of right medial parietal occipital encephalomalacia measuring approximately 2 cm diameter is seen, also previously present. There are periventricular and deep white matter chronic small vessel ischemic changes. There is intracranial internal carotid artery atherosclerosis. Skull and face: Calvarium and visualized facial bones appear intact, without suspicious lesions. Sinuses: Visualized sinuses and mastoids are clear. IMPRESSION: Prior bilateral strokes, larger on the left than the right, stable over time. No new ischemic injury is found. No intracranial hemorrhage identified. Dictated by: Carroll Nayak M.D. on 07/04/2019 at 18:12 Approved by: Carroll Nayak M.D. on 07/04/2019 at 18:13 ECG Data Attestation: I personally reviewed and interpreted this ECG as follows: Prior ECG tracings: not available for review Interpretation: Sinus rhythm Ventricular rate is 65 Normal axis Normal QRS Normal QTC No ST T wave changes MDM Narrative Medical decision making narrative: Patient arrived essentially catatonic. Would not move. Unable to obtain NIH testing. Head CT shows no new pathology. Labs unremarkable. Patient's son eventually arrived. He stated that the patient has episodes like this. He has had episodes like this in the past. They are unsure as the exact cause of them. They occur sporadically. He states that they last anywhere from less than an hour to several hours. He states the patient is than fatigue afterwards potentially for several days. The son stated that he has tried to make his wishes known from the nursing facility that if these events happened he does not want to be transported to the emergency department. The patient's stone stated that patient has made adamant that he does not want admitted to the hospital. While the patient was here in the emergency department he did wake up. He was able to move his extremities. He has had a stroke in the past. He is at his baseline neurologic status. Unsure the exact etiology. This could potentially represent seizures. In talk with the family about talk with the primary doctor about further workup at this if he would like. Patient does not want to be admitted to the hospital. We will not change any of his medications. Patient was discharged at his baseline neurologic status with family. Discharge Plan Departure Patient Disposition: Home Clinical Impression: Acute alteration in mental status Discharge Date/Time: 07/04/19 20:23 Instructions: How to Prevent Falls Activity Restrictions/Additional Instructions: He can continue all of his medications as directed. Contact his primary provider to let him/her know that he was here this evening. Return to the emergency department for any new or worsening symptoms if needed Prescriptions: No Action water for irrigation, sterile [Aqua Care Sterile Water] Solution 60 ml IRR .COMPLEX Qty: 1000 RF: 3 atorvastatin 40 mg tablet 40 mg PO DAILY Qty: 90 RF: 1 metformin [Glucophage] 500 mg tablet 500 mg PO BID Qty: 180 RF: 1 bupropion HCl [Wellbutrin SR] 150 mg tablet sustained-release 12 hr 150 mg PO BID Qty: 180 RF: 1 acetaminophen 325 mg tablet 325 - 650 mg PO Q4HP PRN (Reason: fever or pain) Qty: 60 RF: 3 nitrofurantoin macrocrystal [Macrodantin] 50 mg capsule 50 mg PO BEDTIME Qty: 30 RF: 0 baclofen 20 mg tablet 20 mg PO .COMPLEX Qty: 60 RF: 2 (DME) disabled parking permit See Rx Instructions .ROUTE .MEDSUPPLY Qty: 1 RF: 0 Referrals: Zeb Cadena MD [Primary Care Provider] -
[2019-07-04 18:23] LABS: Ammonia (NH3) < 9 umol/L (9-30)
[2019-07-04 18:24] VITALS: BP 163/78; PULSE 98; RESP 18; TEMP 36.7; O2SAT 98
[2019-07-04 18:30] VITALS: BP 159/94; PULSE 69; RESP 18; O2SAT 98
[2019-07-04 18:33] LABS: Blood Urea Nitrogen 15 mg/dL (9-20); Calcium 9.3 mg/dL (8.4-10.2); Carbon Dioxide 29 mmol/L (22-32); Chloride 102 mmol/L (98-107); Estimated Glomerular Filt Rate > 60.0 mL/min (>60); Glucose 127 mg/dL (80-110); HEMOLYSIS 123 (0-50); Sodium 143 mmol/L (137-145)
[2019-07-04 18:34] LABS: Potassium 3.6 mmol/L (3.4-5.1)
--- NOTE | 2019-07-04 18:35 | PC.NURSE ---
Family present and requests no intervention per patient wishes, noted on POLST comfort measures, prefers to not be transferred to hospital.
--- NOTE | 2019-07-04 18:37 | PC.NURSE ---
unable to follow any commands. Muscle tone wnl, not flacid. When hugged by daughter turned head to her and became tearful. Family states in the past these episodes have lasted hours and when they resolve he tells that during these episodes he can hear people talk but is unable to respond.
[2019-07-04 18:42] LABS: Prolactin 20.8 ng/mL (3.7-17.9)
[2019-07-04 18:43] LABS: Troponin I < 0.012 ng/mL (0.01-0.034)
[2019-07-04 19:32] VITALS: BP 157/70; PULSE 78; RESP 18; O2SAT 98
== END 2019-07-04 20:23 | disposition home or self-care (01) ==
PROVIDERS: Emergency Medicine; Emergency Provider Emergency Medicine; PCP Family Medicine
DX: R41.82 Altered mental status, unspecified (principal); I10 Essential (primary) hypertension; R09.01 Asphyxia
CPT/HCPCS: 70450; 80048; 82140; 84146; 84484; 85025; 85610; 85730; 93005; 99284; 99285

== ENCOUNTER → 2019-09-26 07:01 | Outpatient (ROUT) | payer MEDICARE, SELFPAY ==
[2019-05-23 10:23] VITALS: BMI 23.7
[2019-09-26 08:27] LABS: Hemoglobin A1C% w Est Avg Glu 6.2 % (4.0-6.0)
[2019-09-26 08:34] LABS: BUN Creatinine Ratio 18.9 (6-22); Blood Urea Nitrogen 14 mg/dL (9-20); Calcium 9.3 mg/dL (8.4-10.2); Carbon Dioxide 26 mmol/L (22-32); Chloride 105 mmol/L (98-107); Estimated Glomerular Filt Rate > 60.0 mL/min (>60); Glucose 103 mg/dL (80-110); HEMOLYSIS < 15 (0-50); Potassium 2.9 mmol/L (3.4-5.1); Sodium 141 mmol/L (137-145)
== END ==
PROVIDERS: PCP Family Medicine; Visit Provider Family Medicine
DX: E11.9 Type 2 diabetes mellitus without complications (principal)
CPT/HCPCS: 36415; 80048; 83036

== ENCOUNTER → 2019-10-01 08:09 | Outpatient (ROUT) | payer MEDICARE, SELFPAY ==
[2019-05-23 10:23] VITALS: BMI 23.7
[2019-10-01 08:53] LABS: HEMOLYSIS < 15 (0-50); Potassium 3.2 mmol/L (3.4-5.1)
== END ==
PROVIDERS: PCP Family Medicine; Visit Provider Family Medicine
DX: E87.6 Hypokalemia (principal)
CPT/HCPCS: 36415; 84132

== ENCOUNTER 2019-10-14 10:38 | Emergency (ER) | payer MEDICARE, SELFPAY ==
[2019-05-23 10:23] VITALS: BMI 23.7
[2019-10-14 10:38] VITALS: BP 138/77; PULSE 95; RESP 20; TEMP 36.8; O2SAT 98; BMI 21.7
--- NOTE | 2019-10-14 10:42 | ED.GENADULT ---
HPI - General Adult General Chief complaint: Upper Respiratory Symptoms Stated complaint: SOB Time Seen by Provider: 10/14/19 10:40 Source: patient Mode of arrival: EMS Limitations: no limitations History of Present Illness HPI narrative: Patient is a 68-year-old male. Resident of [facility]. Arrived by EMS for evaluation patient is a DNR with comfort measures only. PLOST is at bedside stating this. Here for evaluation of shortness of breath and coughing. Patient states that his symptoms started last evening. He did cough very small amount of blood-tinged sputum up this morning per his report. The time my evaluation patient is not having chest pain or shortness of breath. Is not currently coughing. Has had a stroke in the past. Other than the coughing last evening has no other complaints. Does not appear that he has tried anything for symptoms. Related Data Previous Rx's Medication Instructions Recorded water for irrigation, sterile 60 ml IRR .COMPLEX #1000 ml 04/30/19 atorvastatin 40 mg tablet 40 mg PO DAILY #90 tab 05/16/19 acetaminophen 325 mg tablet 325 - 650 mg PO Q4HP PRN #60 tab 06/06/19 nitrofurantoin macrocrystal 50 mg 50 mg PO BEDTIME #30 cap 06/15/[address] #1 each 06/27/19 BD cath tip syringe 50ml #90 each 07/30/19 baclofen 20 mg tablet 20 mg PO .COMPLEX #60 tab 09/24/19 glimepiride 2 mg tablet 2 mg PO QAM #90 tab 09/28/19 potassium chloride 20 mEq/15 mL 20 meq PO DAILY #1200 ml 09/28/19 oral liquid bupropion HCl 150 mg tablet,12 hr 150 mg PO QAM #180 tab 10/03/19 sustained-release albuterol sulfate 4 puff INHALATION Q4-6H PRN #18 10/14/19 gram Allergies Allergy/AdvReac Type Severity Reaction Status Date / Time Penicillins Allergy Unknown Verified 10/14/19 11:00 Review of Systems Constitutional Constitutional: Denies fever(s) Cardiovascular Cardiovascular: Denies chest pain Respiratory Respiratory: Reports cough Comments: Blood tinged sputum Gastrointestinal Gastrointestinal: Denies abdominal pain Integumentary/Breasts Skin/Breast: Denies rash Neurologic Neurologic: Denies behavioral changes Psychiatric Psychiatric: Denies behavioral changes Hematologic/Lymphatic Comments: Not on anticoagulation Patient History Medical History Cataract (Chronic) Diabetes mellitus (Chronic ~2012) Diverticulitis (Chronic ~2013) Hyperlipidemia (Chronic ~2013) Stroke (Chronic ~2014) Urinary retention (Acute) Surgical History Anesthesia (Resolved) History of tonsillectomy Family History Father Dementia Sister Age: 65 Acute ischemic stroke Social History Smoking Status: Former smoker Smoking Status: Former smoker alcohol intake frequency: 0-2 drinks per day Substance Use Type: does not use Exam Initial Vital Signs Initial Vital Signs: Vital Signs Temperature 98.3 F 10/14/19 10:38 Pulse Rate 95 H 10/14/19 10:38 Respiratory Rate 20 10/14/19 10:38 Blood Pressure 138/77 10/14/19 10:38 Pulse Oximetry 98 10/14/19 10:38 Const General: cooperative and comfortable Other: Alert to person and place and date but does not know the current year does know the situation of why he is here HENNY Head: normal to inspection and normocephalic Resp Effort & Inspection: normal respiratory effort Auscultation: wheezes (Right-sided) Cardio Rate: regular rate Rhythm: regular rhythm Other: Indwelling Meyer catheter in place Skin Lesions: no lesions Rashes: no rashes Neuro General: alert and awake Speech: speech normal Extrem General: normal to inspection, capillary refill normal and No edema Psych Appearance: grossly normal and well kempt Course Orders Ordered: ED Orders 10/14/19 10:41 XR chest 1V Stat EKG-12 Lead Stat 10/14/19 11:05 Complete Blood Count AUTO DIFF Stat Comprehensive Metabolic Panel Stat Lipase Stat NT-proBNP (BNP-Adult 18+) Stat Partial Thromboplastin Time Stat Procalcitonin Stat Prothrombin Time INR Stat Troponin & CK Cardiac Panel Stat 10/14/19 11:36 CT chest w con Stat Discontinued Medications Albuterol (Ventolin Hfa) 4 puff INH NOW ONE Stop: 10/14/19 11:36 Last Admin: 10/14/19 11:42 Dose: 4 puff Documented by: RRALSTO Sodium Chloride (Normal Saline 0.9%) 1,000 mls @ 500 mls/hr IV BOLUS ONE Stop: 10/14/19 13:36 Last Infusion: 10/14/19 14:10 Dose: 500 mls/hr Documented by: Infusion: 10/14/19 14:09 Dose: 500 mls/hr Documented by: Admin: 10/14/19 11:55 Dose: 500 mls/hr Documented by: TON Vital Signs Vital signs: Vital Signs - 8 hr 10/14/19 10:38 10/14/19 11:45 10/14/19 11:56 Temperature 98.3 F Pulse Rate 95 H 75 75 Respiratory Rate 20 16 Blood Pressure 138/77 Blood Pressure [Left Arm] 125/68 Pulse Oximetry 98 99 10/14/19 12:01 10/14/19 12:33 10/14/19 13:00 Temperature Pulse Rate 75 77 77 Respiratory Rate 16 18 Blood Pressure Blood Pressure [Left Arm] 125/66 131/74 136/74 Pulse Oximetry 100 99 98 Medical Decision Making Medical Records Medical records reviewed: Yes I reviewed the patient's medical records. Lab Data Lab results reviewed: Yes I reviewed the patient's lab results. Result diagrams: 10/14/19 11:05 10/14/19 11:05 Labs: Lab Results 10/14/19 10/14/19 10/14/19 Range/Units 11:05 11:05 11:05 WBC 8.9 (4.5-11.0) X10^3/uL RBC 3.44 L (4.5-5.9) X10^6/uL Hgb 10.2 L (13.5-17.5) g/dL Hct 31.2 L (41-53) % MCV 90.8 (80-100) fL MCH 29.7 (26-34) PG MCHC 32.8 (30-36) % RDW 16.1 H (11.6-14.8) % Plt Count 404 H (150-400) X10^3/uL Neut % (Auto) 63.3 (50-75) % Lymph % (Auto) 24.6 L (25-40) % [place] % (Auto) 10.0 (3-14) % Eos % (Auto) 1.1 L (2-4) % Baso % (Auto) 1.0 (0-2) % Neut # (Auto) 5600 (7174-8667) /uL Lymph # (Auto) 2200 (9132-3473) /uL [place] # (Auto) 900 (0-900) /uL Eos # (Auto) 100 (0-450) /uL Baso # (Auto) 100 (0-100) /uL PT 13.7 H (10.1-12.7) SECONDS INR 1.2 (0.9-1.3) APTT 42 H D (26.4-36.2) SECONDS Sodium 140 (137-145) mmol/L Potassium 4.9 (3.4-5.1) mmol/L Chloride 103 (98-107) mmol/L Carbon Dioxide 28 (22-32) mmol/L BUN 17 (9-20) mg/dL Creatinine 0.73 (0.66-1.25) mg/dL Estimated GFR > 60.0 (>60) mL/min BUN/Creatinine Ratio 23.3 H (6-22) Glucose 189 H (80-110) mg/dL Calcium 9.8 (8.4-10.2) mg/dL Total Bilirubin 0.4 (0.2-1.3) mg/dL AST 36 (17-59) IU/L ALT 16 (<50) IU/L Alkaline Phosphatase 191 H (38-126) U/L Total Creatine Kinase (55-170) U/L CK-MB (CK-2) CK-MB (CK-2) Rel Index Troponin I (0.01-0.034) ng/mL NT-Pro-B Natriuret Pep (<125) pg/mL Total Protein 7.7 (6.3-8.2) g/dL Albumin 4.2 (3.5-5.0) g/dL Globulin 3.5 (1.7-4.1) g/dL Albumin/Globulin Ratio 1.2 (1.0-2.8) Lipase 66 (23-300) U/L Procalcitonin (<0.5) ng/mL 10/14/19 10/14/19 10/14/19 Range/Units 11:05 11:05 11:05 WBC (4.5-11.0) X10^3/uL RBC (4.5-5.9) X10^6/uL Hgb (13.5-17.5) g/dL Hct (41-53) % MCV (80-100) fL MCH (26-34) PG MCHC (30-36) % RDW (11.6-14.8) % Plt Count (150-400) X10^3/uL Neut % (Auto) (50-75) % Lymph % (Auto) (25-40) % [place] % (Auto) (3-14) % Eos % (Auto) (2-4) % Baso % (Auto) (0-2) % Neut # (Auto) (4881-2106) /uL Lymph # (Auto) (1995-6706) /uL [place] # (Auto) (0-900) /uL Eos # (Auto) (0-450) /uL Baso # (Auto) (0-100) /uL PT (10.1-12.7) SECONDS INR (0.9-1.3) APTT (26.4-36.2) SECONDS Sodium (137-145) mmol/L Potassium (3.4-5.1) mmol/L Chloride (98-107) mmol/L Carbon Dioxide (22-32) mmol/L BUN (9-20) mg/dL Creatinine (0.66-1.25) mg/dL Estimated GFR (>60) mL/min BUN/Creatinine Ratio (6-22) Glucose (80-110) mg/dL Calcium (8.4-10.2) mg/dL Total Bilirubin (0.2-1.3) mg/dL AST (17-59) IU/L ALT (<50) IU/L Alkaline Phosphatase (38-126) U/L Total Creatine Kinase 27 L (55-170) U/L CK-MB (CK-2) TNP CK-MB (CK-2) Rel Index TNP Troponin I < 0.012 (0.01-0.034) ng/mL NT-Pro-B Natriuret Pep 128 H (<125) pg/mL Total Protein (6.3-8.2) g/dL Albumin (3.5-5.0) g/dL Globulin (1.7-4.1) g/dL Albumin/Globulin Ratio (1.0-2.8) Lipase (23-300) U/L Procalcitonin < 0.05 (<0.5) ng/mL Imaging Data Chest x-ray: Radiologist's Impression: [address] [address] XRay Report Signed Patient: Aftab Irizarry KMR#: [id number] : 9Acct:[id number] Age/Sex: 68 / MDate of Service: 10/14/19 Loc: ED Accession Number: [id number] Procedure: XR chest 1V Ordering Provider: Vijay Saini D.O. PROCEDURE: XR CHEST 1V INDICATIONS: Shortness of breath TECHNIQUE: One view of the chest was acquired. COMPARISON: [facility], , XR CHEST 1V, 05/23/2019, 8:16. FINDINGS: Surgical changes and devices: None. Lungs and pleura: A spiculated right hilar mass is identified, which is more conspicuous on the current study. No large effusion or pneumothorax is evident. Mediastinum: Mediastinal contours appear normal. Heart size is normal. Bones and chest wall: No suspicious bony lesions. Overlying soft tissues appear unremarkable. IMPRESSION: Right hilar mass. Contrast enhanced chest CT is recommended for further evaluation. Dictated by: Vikash Aldrich M.D. on 10/14/2019 at 10:05 Approved by: Vikash Aldrich M.D. on 10/14/2019 at 10:06 CT scan - chest: Radiologist's Impression: [address] [address] [address] Scan Report Signed Patient: Aftab Irizarry KMR#: [id number] : 9Acct:[id number] Age/Sex: 68 / MDate of Service: 10/14/19 Loc: ED Accession Number: [id number] Procedure: CT chest w con Ordering Provider: Vijay Saini D.O. PROCEDURE: CT CHEST W CON INDICATIONS: righ sided lung mass TECHNIQUE: After the administration of intravenous contrast, 5 mm thick sections acquired from the pulmonary apices to the posterior costophrenic angles. 1 mm axial lung, 5 mm thick coronal and sagittal reformats and 7 mm axial MIP were acquired. For radiation dose reduction, the following was used: automated exposure control, adjustment of mA and/or kV according to patient size. COMPARISON: None. FINDINGS: Image quality: Diagnostic. Lungs and pleura: There is a spiculated right hilar mass that measures approximately 4.0 x 5.0 x 4.8 cm (image 33, series 2). This mass is exerting prominent mass effect on the right lower lobe pulmonary arteries and veins and mild mass effect on the right lower lobe bronchi. Bronchial wall thickening within the right lower lobe is identified. There are areas of mild atelectasis within the posterior right costophrenic angle. Mild scarring versus atelectasis on the posterior aspect of the superior margin of the left lower lobe is also identified (image 32, series 2). There is mild scarring versus atelectasis at the left lung base. Extensive centrilobular emphysematous changes of the lungs are more prominent within the lung apices. No effusion or pneumothorax is appreciated. Mediastinum: Heart size is normal. No pericardial effusion. No mediastinal or hilar adenopathy by size criteria. Thoracic aorta and central pulmonary arteries are normal in size. Esophagus is normal in caliber. There may be a small hiatal hernia. Bones and chest wall: No suspicious bony lesions. No vertebral body compression fractures. No axillary or supraclavicular adenopathy by size criteria. Thyroid gland is not enlarged readily evaluated. Abdomen: Visualized upper abdominal solid organs appear normal. Upper abdominal bowel loops are normal in caliber. IMPRESSION: 1. 5 cm spiculated right hilar mass is highly suggestive of a primary pulmonary neoplasm. There is moderate mass effect on the adjacent right lower lobe bronchovascular structures. 2. No lymphadenopathy is appreciated. 3. Severe centrilobular emphysematous changes of the lungs. 4. Bronchial wall thickening within the right lower lobe may represent bronchitis. Dictated by: Vikash Aldrich M.D. on 10/14/2019 at 11:32 Approved by: Vikash Aldrich M.D. on 10/14/2019 at 11:42 ECG Data Attestation: I personally reviewed and interpreted this ECG as follows: Prior ECG tracings: not available for review Interpretation: Sinus rhythm Ventricular rate 81 Normal axis Normal QRS Normal QTC No ST T wave is MDM Narrative Medical decision making narrative: Patient has not coughed since being in the emergency department. Is afebrile. Not hypoxic. Not tachypneic. Not on anticoagulation. Patient did have a lung mass on his chest x-ray. Review of his radiologic studies shows that in April of last year this mass was also noted. Does not appear that he has had any workup for it. I did obtain a CT scan of his chest today which is very concerning for lung carcinoma. Patient's son was at bedside and I did have a discussion with both the patient and his son regarding the findings. We discussed follow-up with the primary doctor to discuss further workup if this is indicated given his other medical issues and also his prior decisions noted on his PLOST form. Patient was tested for COVID-19. It does not appear on his CT scan that this mass is eroding into any vascular structures although it does show that it is close to vascular structures. He has not had any hemoptysis/hematemesis. No indication for blood transfusions. No indication for antibiotics. Will discharge the patient back to his care facility. He was given return precautions and follow-up instructions. Both he and son expressed understanding and agreement. Discharge Plan Departure Patient Disposition: Home Clinical Impression: Cough, Mass of lung Discharge Date/Time: 10/14/19 14:13 Activity Restrictions/Additional Instructions: I do recommend that tomorrow you contact Dr. Cadena for a follow-up. Return to the emergency department for any new or worsening symptoms Prescriptions: New albuterol sulfate 90 mcg/actuation HFA aerosol inhaler 4 puff INHALATION Q4-6H PRN (Reason: shortness of breath or wheezing) Qty: 18 RF: 0 No Action water for irrigation, sterile [Aqua Care Sterile Water] Solution 60 ml IRR .COMPLEX Qty: 1000 RF: 3 atorvastatin 40 mg tablet 40 mg PO DAILY Qty: 90 RF: 1 Hold Instructions: may not need acetaminophen 325 mg tablet 325 - 650 mg PO Q4HP PRN (Reason: fever or pain) Qty: 60 RF: 3 nitrofurantoin macrocrystal [Macrodantin] 50 mg capsule 50 mg PO BEDTIME Qty: 30 RF: 0 (DME) BD cath tip syringe 50ml See Rx Instructions .Route .MEDSUPPLY Qty: 90 RF: 1 baclofen 20 mg tablet 20 mg PO .COMPLEX Qty: 60 RF: 2 glimepiride 2 mg tablet 2 mg PO QAM Qty: 90 RF: 3 potassium chloride 20 mEq/15 mL liquid 20 meq PO DAILY Qty: 1200 RF: 3 bupropion HCl [Wellbutrin SR] 150 mg tablet sustained-release 12 hr 150 mg PO QAM Qty: 180 RF: 1 (DME) disabled parking permit See Rx Instructions .ROUTE .MEDSUPPLY Qty: 1 RF: 0 Referrals: Zeb Cadena MD [Primary Care Provider] -
[2019-10-14 11:32] LABS: INR 1.2 (0.9-1.3); Prothrombin Time 13.7 SECONDS (10.1-12.7)
[2019-10-14 11:34] LABS: Add Manual Diff / Slide Review NO; Basophils Absolute Auto 100 /uL (0-100); Eosinophils Absolute Auto 100 /uL (0-450); Eosinophils Percent Auto 1.1 % (2-4); Hematocrit 31.2 % (41-53); Hemoglobin 10.2 g/dL (13.5-17.5); Lymphocytes Absolute Auto 2200 /uL (1100-4500); Lymphocytes Percent Auto 24.6 % (25-40); Mean Corpuscular HGB Conc 32.8 % (30-36); Mean Corpuscular Hemoglobin 29.7 PG (26-34); Mean Corpuscular Volume 90.8 fL (80-100); Monocytes Absolute Auto 900 /uL (0-900); Neutrophils Absolute Auto 5600 /uL (1500-7000); Neutrophils Percent Auto 63.3 % (50-75); Platelet Count 404 X10^3/uL (150-400); Red Blood Cell Count 3.44 X10^6/uL (4.5-5.9); Red Cell Distribution Width 16.1 % (11.6-14.8); White Blood Cell Count 8.9 X10^3/uL (4.5-11.0)
[2019-10-14 11:35] LABS: PTT Partial Thromboplastin Tim 42 SECONDS (26.4-36.2)
--- NOTE | 2019-10-14 11:36 | DI.CT.S_ITS ---
PROCEDURE: CT CHEST W CON INDICATIONS: righ sided lung mass TECHNIQUE: After the administration of intravenous contrast, 5 mm thick sections acquired from the pulmonary apices to the posterior costophrenic angles. 1 mm axial lung, 5 mm thick coronal and sagittal reformats and 7 mm axial MIP were acquired. For radiation dose reduction, the following was used: automated exposure control, adjustment of mA and/or kV according to patient size. COMPARISON: None. FINDINGS: Image quality: Diagnostic. Lungs and pleura: There is a spiculated right hilar mass that measures approximately 4.0 x 5.0 x 4.8 cm (image 33, series 2). This mass is exerting prominent mass effect on the right lower lobe pulmonary arteries and veins and mild mass effect on the right lower lobe bronchi. Bronchial wall thickening within the right lower lobe is identified. There are areas of mild atelectasis within the posterior right costophrenic angle. Mild scarring versus atelectasis on the posterior aspect of the superior margin of the left lower lobe is also identified (image 32, series 2). There is mild scarring versus atelectasis at the left lung base. Extensive centrilobular emphysematous changes of the lungs are more prominent within the lung apices. No effusion or pneumothorax is appreciated. Mediastinum: Heart size is normal. No pericardial effusion. No mediastinal or hilar adenopathy by size criteria. Thoracic aorta and central pulmonary arteries are normal in size. Esophagus is normal in caliber. There may be a small hiatal hernia. Bones and chest wall: No suspicious bony lesions. No vertebral body compression fractures. No axillary or supraclavicular adenopathy by size criteria. Thyroid gland is not enlarged readily evaluated. Abdomen: Visualized upper abdominal solid organs appear normal. Upper abdominal bowel loops are normal in caliber. IMPRESSION: 1. 5 cm spiculated right hilar mass is highly suggestive of a primary pulmonary neoplasm. There is moderate mass effect on the adjacent right lower lobe bronchovascular structures. 2. No lymphadenopathy is appreciated. 3. Severe centrilobular emphysematous changes of the lungs. 4. Bronchial wall thickening within the right lower lobe may represent bronchitis. Dictated by: Vikash Aldrich M.D. on 10/14/2019 at 11:32 Approved by: Vikash Aldrich M.D. on 10/14/2019 at 11:42
[2019-10-14 11:37] LABS: Alanine Aminotransferase 16 IU/L (<50); Albumin 4.2 g/dL (3.5-5.0); Albumin Globulin Ratio 1.2 (1.0-2.8); Alkaline Phosphatase 191 U/L (38-126); Aspartate Aminotransferase 36 IU/L (17-59); BUN Creatinine Ratio 23.3 (6-22); Bilirubin Total 0.4 mg/dL (0.2-1.3); Blood Urea Nitrogen 17 mg/dL (9-20); Calcium 9.8 mg/dL (8.4-10.2); Carbon Dioxide 28 mmol/L (22-32); Chloride 103 mmol/L (98-107); Creatine Kinase 27 U/L (55-170); Estimated Glomerular Filt Rate > 60.0 mL/min (>60); Globulin 3.5 g/dL (1.7-4.1); Glucose 189 mg/dL (80-110); HEMOLYSIS < 15 (0-50); Lipase 66 U/L (23-300); Potassium 4.9 mmol/L (3.4-5.1); Sodium 140 mmol/L (137-145); Total Protein 7.7 g/dL (6.3-8.2)
[2019-10-14] MEDS: ALBUTEROL HFA 60 PUFF/8 GM INH INH (11:42)
[2019-10-14 11:45] VITALS: PULSE 75; RESP 16
[2019-10-14 11:46] LABS: NT-proBNP (BNP-Adult 18+) 128 pg/mL (<125)
[2019-10-14 11:49] LABS: Troponin I < 0.012 ng/mL (0.01-0.034)
[2019-10-14] MEDS: SODIUM CHLORIDE 0.9% 1,000 ML 500 ML IV (11:55)
[2019-10-14 11:56] VITALS: BP 125/68; PULSE 75; O2SAT 99
[2019-10-14 12:01] VITALS: BP 125/66; PULSE 75; RESP 16; O2SAT 100
--- NOTE | 2019-10-14 12:02 | RT ---
Eleon[facility] MDI issued to pt. Pt is nearly unable to perform MDI on own, has no use of his R hand. Pt instructed MDI use.
[2019-10-14 12:13] LABS: Procalcitonin < 0.05 ng/mL (<0.5)
[2019-10-14 12:33] VITALS: BP 131/74; PULSE 77; RESP 18; O2SAT 99
[2019-10-14 13:00] VITALS: BP 136/74; PULSE 77; O2SAT 98
--- NOTE | 2019-10-14 14:26 | PC.NURSE ---
gave report to sound view.
--- NOTE | 2019-10-14 15:02 | PC.NURSE ---
report given to MOR Smith.
[2019-10-16 10:19] LABS: COVID19 Sendout Not Detected (Not Detected)
== END 2019-10-14 14:13 | disposition home or self-care (01) ==
PROVIDERS: Emergency Provider Emergency Medicine; PCP Family Medicine
DX: R05 Cough (principal); R06.02 Shortness of breath; R91.8 Other nonspecific abnormal finding of lung field
CPT/HCPCS: 36415; 71045; 71260; 80053; 82550; 83690; 83880; 84145; 84484; 85025; 85610; 85730; 87635; 93005; 94640; 96360; 96361; 99285; Q9967

== ENCOUNTER → 2019-10-15 07:31 | Outpatient (ROUT) | payer MEDICARE, SELFPAY ==
[2019-05-23 10:23] VITALS: BMI 23.7
[2019-10-15 08:42] LABS: HEMOLYSIS < 15 (0-50); Potassium 4.3 mmol/L (3.4-5.1)
== END ==
PROVIDERS: PCP Family Medicine; Visit Provider Family Medicine
DX: E87.6 Hypokalemia (principal)
CPT/HCPCS: 36415; 84132

== ENCOUNTER → 2019-11-21 07:11 | Outpatient (ROUT) | payer MEDICARE, SELFPAY ==
[2019-05-23 10:23] VITALS: BMI 23.7
[2019-11-21 07:45] LABS: Hemoglobin A1C% w Est Avg Glu 6.4 % (4.0-6.0)
[2019-11-21 07:54] LABS: BUN Creatinine Ratio 23.4 (6-22); Blood Urea Nitrogen 15 mg/dL (9-20); Calcium 9.1 mg/dL (8.4-10.2); Carbon Dioxide 28 mmol/L (22-32); Chloride 107 mmol/L (98-107); Cholesterol 116 mg/dL (140-199); Estimated Glomerular Filt Rate > 60.0 mL/min (>60); Glucose 89 mg/dL (80-110); HDL Cholesterol 26 mg/dL (40-60); HEMOLYSIS < 15 (0-50); LDL Cholesterol Calculated 80 mg/dL (<100); Sodium 141 mmol/L (137-145); Triglycerides 52 mg/dL (35-150)
[2019-11-21 08:24] LABS: Potassium 2.4 mmol/L (3.4-5.1)
== END ==
PROVIDERS: PCP Family Medicine; Visit Provider Family Medicine
DX: E11.9 Type 2 diabetes mellitus without complications (principal); E87.6 Hypokalemia
CPT/HCPCS: 36415; 80048; 80061; 83036

== ENCOUNTER → 2019-11-23 07:00 | Outpatient (ROUT) | payer MEDICARE, SELFPAY ==
[2019-05-23 10:23] VITALS: BMI 23.7
[2019-11-23 08:30] LABS: HEMOLYSIS < 15 (0-50); Potassium 2.9 mmol/L (3.4-5.1)
== END ==
PROVIDERS: PCP Family Medicine; Visit Provider Family Medicine
DX: E87.6 Hypokalemia (principal)
CPT/HCPCS: 36415; 84132

== ENCOUNTER 2019-11-25 07:00 | Emergency (ER) | payer MEDICARE, SELFPAY ==
[2019-05-23 10:23] VITALS: BMI 23.7
[2019-11-25 07:07] VITALS: BP 132/88; PULSE 94; RESP 22; TEMP 36.9; O2SAT 96; BMI 20.8
--- NOTE | 2019-11-25 07:22 | ED_ITS ---
HPI - Extremity Problem General Chief complaint: Extremity Problem,Nontraumatic Stated complaint: right shoulder pain Time Seen by Provider: 11/25/19 07:15 Source: patient, EMS and old records reviewed Mode of arrival: EMS Limitations: no limitations History of Present Illness HPI Narrative: Patient is a 68-year-old male with history of dementia and CVA with right-sided weakness who resides at [facility] presenting with right shoulder pain. He states that he has had shoulder pain for a long time it just seems to be worse at the moment. He also has left-sided tremor which he says usually happens when his potassium is low. He denies any injury has no chest pain or shortness of breath. He is overall a poor historian MD Complaint: extremity pain Related Data Previous Rx's Medication Instructions Recorded water for irrigation, sterile 60 ml IRR .COMPLEX #1000 ml 04/30/19 atorvastatin 40 mg tablet 40 mg PO DAILY #90 tab 05/16/19 acetaminophen 325 mg tablet 325 - 650 mg PO Q4HP PRN #60 tab 06/06/19 nitrofurantoin macrocrystal 50 mg 50 mg PO BEDTIME #30 cap 06/15/[address] #1 each 06/27/19 BD cath tip syringe 50ml #90 each 07/30/19 glimepiride 2 mg tablet 2 mg PO QAM #90 tab 09/28/19 potassium chloride 20 mEq/15 mL 20 meq PO DAILY #1200 ml 09/28/19 oral liquid bupropion HCl 150 mg tablet,12 hr 150 mg PO QAM #180 tab 10/03/19 sustained-release albuterol sulfate 4 puff INHALATION Q4-6H PRN #18 10/14/19 gram baclofen 20 mg tablet 20 mg PO .COMPLEX #60 tab 11/20/19 Allergies Allergy/AdvReac Type Severity Reaction Status Date / Time Penicillins Allergy Unknown Verified 11/25/19 07:07 Review of Systems Review of Systems ROS Unobtainable: All systems reviewed & are unremarkable except as noted in HPI and below Constitutional Constitutional: Denies chills, Denies fever(s), Denies lethargy and Denies weakness Cardiovascular Cardiovascular: Denies chest pain, Denies irregular heart rhythm, Denies lightheadedness, Denies palpitations, Denies dyspnea, Denies dyspnea on exertion and Denies orthopnea Respiratory Respiratory: Denies cough, Denies dyspnea, Denies dyspnea on exertion and Denies wheezing Gastrointestinal Gastrointestinal: Denies abdominal pain, Denies change in bowel habits, Denies diarrhea, Denies nausea and Denies vomiting Genitourinary Comments: sanders catheter in place Musculoskeletal Musculoskeletal: Reports as per HPI Integumentary/Breasts Skin/Breast: Denies pruritus, Denies erythema, Denies rash and Denies wounds Neurologic Neurologic: Denies weakness Endocrine Endocrine: Denies palpitations Allergic/Immunologic Allergic/Immunologic: Denies wheezing Patient History Medical History Cataract (Chronic) Diabetes mellitus (Chronic ~2012) Diverticulitis (Chronic ~2013) Hyperlipidemia (Chronic ~2013) Stroke (Chronic ~2014) Urinary retention (Acute) Surgical History Anesthesia (Resolved) History of tonsillectomy Family History Father Dementia Sister Age: 65 Acute ischemic stroke Social History Smoking Status: Former smoker Smoking Status: Former smoker alcohol intake frequency: 0-2 drinks per day Substance Use Type: does not use Exam Initial Vital Signs Initial Vital Signs: Vital Signs Temperature 98.4 F 11/25/19 07:07 Pulse Rate 94 H 11/25/19 07:07 Respiratory Rate 22 11/25/19 07:07 Blood Pressure 132/88 11/25/19 07:07 Pulse Oximetry 96 11/25/19 07:07 GENERAL: Alert elderly male no acute distress HEENT: Head atraumatic,EOMI, pupils reactive, face symmetric CARDIOVASCULAR: Regular rate and rhythm without murmurs, rubs or gallops. RESPIRATORY: Breath sounds equal bilaterally, no wheezes rales or rhonchi. ABDOMEN: Soft, nontender. Normoactive bowel sounds all 4 quadrants. No guarding or rebound. : Sanders catheter in place EXTREMITIES: Normal range of motion, no clubbing or edema. Neurovascularly intact. Right arm in brace week right shoulder does not appear to have any gross bony deformity there is no contusion painful with abduction peripheral pulse intact NEUROLOGICAL: Alert and oriented. SKIN: Warm, dry, no laceration, no petechiae, no rashes or lesions. Course Orders Ordered: ED Orders 11/25/19 07:11 EKG-12 Lead Stat 11/25/19 07:28 XR chest 1V Stat XR shoulder RT min 2V Stat 11/25/19 07:40 Complete Blood Count AUTO DIFF Stat Comprehensive Metabolic Panel Stat Troponin & CK Cardiac Panel Stat 11/25/19 08:28 XR elbow RT 2V Stat Discontinued Medications Acetaminophen (Tylenol) 650 mg PO NOW ONE Stop: 11/25/19 07:29 Last Admin: 11/25/19 07:59 Dose: 650 mg Documented by: DEANNA Ketorolac Tromethamine (Toradol) 30 mg IM NOW ONE Stop: 11/25/19 08:30 Last Admin: 11/25/19 08:54 Dose: 30 mg Documented by: DEANNA Vital Signs Vital signs: Vital Signs - 8 hr 11/25/19 07:07 11/25/19 08:33 11/25/19 09:03 Temperature 98.4 F Pulse Rate 94 H 80 79 Respiratory Rate 22 22 18 Blood Pressure 132/88 Blood Pressure [Left Arm] 131/71 124/70 Pulse Oximetry 96 95 97 11/25/19 10:12 Temperature Pulse Rate 73 Respiratory Rate 15 Blood Pressure Blood Pressure [Left Arm] 115/66 Pulse Oximetry 97 MDM - Extremity (Nontraumatic) Lab Data Result diagrams: 11/25/19 07:40 11/25/19 07:40 Labs: Lab Results 11/25/19 11/25/19 Range/Units 07:40 07:40 WBC 8.1 (4.5-11.0) X10^3/uL RBC 3.21 L (4.5-5.9) X10^6/uL Hgb 9.0 L (13.5-17.5) g/dL Hct 27.6 L (41-53) % MCV 86.1 (80-100) fL MCH 28.1 (26-34) PG MCHC 32.6 (30-36) % RDW 16.1 H (11.6-14.8) % Plt Count 349 (150-400) X10^3/uL Neut % (Auto) 66.2 (50-75) % Lymph % (Auto) 22.0 L (25-40) % [place] % (Auto) 9.4 (3-14) % Eos % (Auto) 1.6 L (2-4) % Baso % (Auto) 0.8 (0-2) % Neut # (Auto) 5300 (8187-1624) /uL Lymph # (Auto) 1800 (6402-9962) /uL [place] # (Auto) 800 (0-900) /uL Eos # (Auto) 100 (0-450) /uL Baso # (Auto) 100 (0-100) /uL Sodium 138 (137-145) mmol/L Potassium 3.7 (3.4-5.1) mmol/L Chloride 103 (98-107) mmol/L Carbon Dioxide 29 (22-32) mmol/L BUN 11 (9-20) mg/dL Creatinine 0.64 L (0.66-1.25) mg/dL Estimated GFR > 60.0 (>60) mL/min BUN/Creatinine Ratio 17.2 (6-22) Glucose 116 H (80-110) mg/dL Calcium 9.3 (8.4-10.2) mg/dL Total Bilirubin 0.5 (0.2-1.3) mg/dL AST 23 (17-59) IU/L ALT 13 (<50) IU/L Alkaline Phosphatase 193 H (38-126) U/L Total Creatine Kinase 39 L (55-170) U/L CK-MB (CK-2) TNP CK-MB (CK-2) Rel Index TNP Troponin I < 0.012 (0.01-0.034) ng/mL Total Protein 6.9 (6.3-8.2) g/dL Albumin 3.6 (3.5-5.0) g/dL Globulin 3.3 (1.7-4.1) g/dL Albumin/Globulin Ratio 1.1 (1.0-2.8) Point of Care Testing Glucose POC 124 Imaging Data Extremity x-ray #1: Radiologist's Impression: PROCEDURE: XR SHOULDER RT MIN 2V INDICATIONS: pain TECHNIQUE: 2 views of the shoulder were acquired. COMPARISON: CT chest of 10/14/19. FINDINGS: Bones: No fractures or dislocations. No suspicious bony lesions. Visualized ribs appear intact. Mild glenohumeral joint degenerative change. Soft tissues: No suspicious soft tissue calcifications. Miscellaneous: A spiculated right hilar pulmonary mass is seen. This is a known finding. IMPRESSION: 1. No evidence acute bony abnormality of the right shoulder. 2. Known bronchogenic carcinoma of the right lung. Dictated by: Lele Noguera M.D. on 11/25/2019 at 7:38 Extremity x-ray #2: Radiologist's Impression: PROCEDURE: XR ELBOW RT 2V INDICATIONS: shoulder pain TECHNIQUE: 2 views of the elbow were acquired. COMPARISON: None. FINDINGS: Bones: Deformity of the distal humerus at the elbow suggests remote trauma. Suboptimal AP view. No obvious fractures or dislocations. No suspicious bony lesions. Soft tissues: No elbow joint effusion. No suspicious soft tissue calcifications. IMPRESSION: No fractures or dislocations identified at the elbow. Dictated by: Lele Noguera M.D. on 11/25/2019 at 8:10 Chest x-ray: Radiologist's Impression: PROCEDURE: XR CHEST 1V INDICATIONS: chest pain TECHNIQUE: One view of the chest was acquired. COMPARISON: None. FINDINGS: Surgical changes and devices: Chest x-ray dated 10/14/19, chest CT dated 10/14/19. Lungs and pleura: Again noted is a large spiculated right hilar mass. No focal airspace consolidation. No pleural effusions or pneumothorax. Mediastinum: Mediastinal contours appear normal. Heart size is normal. Upper abdomen: Air present under the right hemidiaphragm is likely colonic in nature. Bones and chest wall: No suspicious bony lesions. Overlying soft tissues james ear unremarkable. IMPRESSION: Known spiculated right lung mass. No acute superimposed infiltrates. Dictated by: Lele Noguera M.D. on 11/25/2019 at 7:40 ECG Data Attestation EKG: I personally reviewed and interpreted this ECG as follows: Prior ECG tracings: available for review Interpretation: Normal sinus rhythm rate 91 p.r. interval 159 QRS [address] elevation depression or T-wave inversions similar to previous EKG MDM Narrative Medical decision making narrative: Patient was given Tylenol and Toradol for his pain he has had x-rays all which are negative. Blood work is also reassuring he initially said his potassium is sometimes low which today it is reassuring. His pain is much better controlled after the Toradol his tremor has stopped. He feels better. At this time I do not think that there is a septic joint he is afebrile there is no leukocytosis. Discharge Plan Departure Patient Disposition: Home Clinical Impression: Shoulder arthritis Discharge Date/Time: 11/25/19 10:29 Instructions: DI for Arthritis Activity Restrictions/Additional Instructions: *You have been diagnosed with right shoulder arthritis *What to do: X-rays and blood work are all reassuring no broken bones. *Continue to take medications as directed Continue Tylenol as directed if needed for pain *Follow up with your primary care provider in 2-3 days *Return to ER if you should have increasing pain fevers confusion or any new, worsening or concerning symptoms Prescriptions: No Action water for irrigation, sterile [Aqua Care Sterile Water] Solution 60 ml IRR .COMPLEX Qty: 1000 RF: 3 atorvastatin 40 mg tablet 40 mg PO DAILY Qty: 90 RF: 1 Hold Instructions: may not need acetaminophen 325 mg tablet 325 - 650 mg PO Q4HP PRN (Reason: fever or pain) Qty: 60 RF: 3 nitrofurantoin macrocrystal [Macrodantin] 50 mg capsule 50 mg PO BEDTIME Qty: 30 RF: 0 (DME) BD cath tip syringe 50ml See Rx Instructions .Route .MEDSUPPLY Qty: 90 RF: 1 baclofen 20 mg tablet 20 mg PO .COMPLEX Qty: 60 RF: 2 glimepiride 2 mg tablet 2 mg PO QAM Qty: 90 RF: 3 potassium chloride 20 mEq/15 mL liquid 20 meq PO DAILY Qty: 1200 RF: 3 bupropion HCl [Wellbutrin SR] 150 mg tablet sustained-release 12 hr 150 mg PO QAM Qty: 180 RF: 1 (DME) disabled parking permit See Rx Instructions .ROUTE .MEDSUPPLY Qty: 1 RF: 0 albuterol sulfate 90 mcg/actuation HFA aerosol inhaler 4 puff INHALATION Q4-6H PRN (Reason: shortness of breath or wheezing) Qty: 18 RF: 0 Referrals: Zeb Cadena MD [Primary Care Provider] -
--- NOTE | 2019-11-25 07:28 | DI.RAD.S_ITS ---
PROCEDURE: XR CHEST 1V INDICATIONS: chest pain TECHNIQUE: One view of the chest was acquired. COMPARISON: None. FINDINGS: Surgical changes and devices: Chest x-ray dated 10/14/19, chest CT dated 10/14/19. Lungs and pleura: Again noted is a large spiculated right hilar mass. No focal airspace consolidation. No pleural effusions or pneumothorax. Mediastinum: Mediastinal contours appear normal. Heart size is normal. Upper abdomen: Air present under the right hemidiaphragm is likely colonic in nature. Bones and chest wall: No suspicious bony lesions. Overlying soft tissues appear unremarkable. IMPRESSION: Known spiculated right lung mass. No acute superimposed infiltrates. Dictated by: Lele Noguera M.D. on 11/25/2019 at 7:40 Approved by: Lele Noguera M.D. on 11/25/2019 at 7:43
--- NOTE | 2019-11-25 07:28 | DI.RAD.S_ITS ---
PROCEDURE: XR SHOULDER RT MIN 2V INDICATIONS: pain TECHNIQUE: 2 views of the shoulder were acquired. COMPARISON: CT chest of 10/14/19. FINDINGS: Bones: No fractures or dislocations. No suspicious bony lesions. Visualized ribs appear intact. Mild glenohumeral joint degenerative change. Soft tissues: No suspicious soft tissue calcifications. Miscellaneous: A spiculated right hilar pulmonary mass is seen. This is a known finding. IMPRESSION: 1. No evidence acute bony abnormality of the right shoulder. 2. Known bronchogenic carcinoma of the right lung. Dictated by: Lele Noguera M.D. on 11/25/2019 at 7:38 Approved by: Lele Noguera M.D. on 11/25/2019 at 7:39
[2019-11-25] MEDS: ACETAMINOPHEN 325 MG TABLET 650 MG PO (07:59)
[2019-11-25 08:04] LABS: Alanine Aminotransferase 13 IU/L (<50); Albumin 3.6 g/dL (3.5-5.0); Albumin Globulin Ratio 1.1 (1.0-2.8); Alkaline Phosphatase 193 U/L (38-126); Aspartate Aminotransferase 23 IU/L (17-59); BUN Creatinine Ratio 17.2 (6-22); Bilirubin Total 0.5 mg/dL (0.2-1.3); Blood Urea Nitrogen 11 mg/dL (9-20); Calcium 9.3 mg/dL (8.4-10.2); Carbon Dioxide 29 mmol/L (22-32); Chloride 103 mmol/L (98-107); Creatine Kinase 39 U/L (55-170); Estimated Glomerular Filt Rate > 60.0 mL/min (>60); Globulin 3.3 g/dL (1.7-4.1); Glucose 116 mg/dL (80-110); HEMOLYSIS < 15 (0-50); Potassium 3.7 mmol/L (3.4-5.1); Sodium 138 mmol/L (137-145); Total Protein 6.9 g/dL (6.3-8.2)
[2019-11-25 08:10] LABS: Add Manual Diff / Slide Review NO; Basophils Absolute Auto 100 /uL (0-100); Basophils Percent Auto 0.8 % (0-2); Eosinophils Absolute Auto 100 /uL (0-450); Eosinophils Percent Auto 1.6 % (2-4); Hematocrit 27.6 % (41-53); Lymphocytes Absolute Auto 1800 /uL (1100-4500); Mean Corpuscular HGB Conc 32.6 % (30-36); Mean Corpuscular Hemoglobin 28.1 PG (26-34); Mean Corpuscular Volume 86.1 fL (80-100); Monocytes Absolute Auto 800 /uL (0-900); Monocytes Percent Auto 9.4 % (3-14); Neutrophils Absolute Auto 5300 /uL (1500-7000); Neutrophils Percent Auto 66.2 % (50-75); Platelet Count 349 X10^3/uL (150-400); Red Blood Cell Count 3.21 X10^6/uL (4.5-5.9); Red Cell Distribution Width 16.1 % (11.6-14.8); White Blood Cell Count 8.1 X10^3/uL (4.5-11.0)
[2019-11-25 08:15] LABS: Troponin I < 0.012 ng/mL (0.01-0.034)
--- NOTE | 2019-11-25 08:28 | DI.RAD.S_ITS ---
PROCEDURE: XR ELBOW RT 2V INDICATIONS: shoulder pain TECHNIQUE: 2 views of the elbow were acquired. COMPARISON: None. FINDINGS: Bones: Deformity of the distal humerus at the elbow suggests remote trauma. Suboptimal AP view. No obvious fractures or dislocations. No suspicious bony lesions. Soft tissues: No elbow joint effusion. No suspicious soft tissue calcifications. IMPRESSION: No fractures or dislocations identified at the elbow. Dictated by: Lele Noguera M.D. on 11/25/2019 at 8:10 Approved by: Lele Noguera M.D. on 11/25/2019 at 8:11
[2019-11-25 08:33] VITALS: BP 131/71; PULSE 80; RESP 22; O2SAT 95
[2019-11-25] MEDS: KETOROLAC 60 MG/2 ML VIAL 30 MG IM (08:54)
[2019-11-25 09:03] VITALS: BP 124/70; PULSE 79; RESP 18; O2SAT 97
[2019-11-25 10:12] VITALS: BP 115/66; PULSE 73; RESP 15; O2SAT 97
== END 2019-11-25 10:29 | disposition home or self-care (01) ==
PROVIDERS: Emergency Provider Emergency Medicine; PCP Family Medicine
DX: M19.011 Primary osteoarthritis, right shoulder (principal)
CPT/HCPCS: 36415; 71045; 73030; 73070; 80053; 82550; 82962; 84484; 85025; 93005; 96372; 99284; J1885

== ENCOUNTER → 2019-11-26 07:08 | Outpatient (ROUT) | payer MEDICARE, SELFPAY ==
[2019-05-23 10:23] VITALS: BMI 23.7
[2019-11-26 08:07] LABS: HEMOLYSIS < 15 (0-50); Potassium 4.3 mmol/L (3.4-5.1)
== END ==
PROVIDERS: PCP Family Medicine; Visit Provider Family Medicine
DX: E87.6 Hypokalemia (principal)
CPT/HCPCS: 36415; 84132

== ENCOUNTER 2019-11-30 00:04 | Emergency (ER) | payer MEDICARE, SELFPAY ==
[2019-05-23 10:23] VITALS: BMI 23.7
[2019-11-30 00:14] VITALS: BP 123/76; PULSE 95; RESP 17; TEMP 36.3; O2SAT 100
--- NOTE | 2019-11-30 00:19 | ED_ITS ---
HPI - General Adult General Chief complaint: Shortness of Breath/Dyspnea Stated complaint: SOB Time Seen by Provider: 11/30/19 00:08 Source: patient Mode of arrival: EMS Limitations: other (Stroke) History of Present Illness HPI narrative: Patient is a 68-year-old male with a history of dementia and stroke with right-sided weakness. Does have a PLOST form with him that states that he is DNR/DNI/comfort measures only and also has circled and highlighted that he prefers not to be transported to the emergency department. He is here for evaluation of what was initially described the shortness of breath. Paramed ics states that his vital signs have been stable EN route. It is somewhat difficult obtaining HPI from the patient. Unsure if this is secondary to his dementia or potentially problems with expressing himself secondary to history of stroke. What I could obtain from the patient is that he has pain with movement of his right arm that is moving to the right side of his chest and causing him to have shortness of breath. He did shake his head in an affirmative manner when I asked if this is what brought him in to the emergency department. Upon review of his notes he was here a couple days ago for what was right shoulder pain. He is given Toradol which seemed to help his symptoms. I asked him if he felt like he needed another dose of the Toradol he again shook his head in an affirmative manner. Related Data Previous Rx's Medication Instructions Recorded water for irrigation, sterile 60 ml IRR .COMPLEX #1000 ml 04/30/19 atorvastatin 40 mg tablet 40 mg PO DAILY #90 tab 05/16/19 acetaminophen 325 mg tablet 325 - 650 mg PO Q4HP PRN #60 tab 06/06/19 nitrofurantoin macrocrystal 50 mg 50 mg PO BEDTIME #30 cap 06/15/19 capsule disabled parking permit #1 each 06/27/19 BD cath tip syringe 50ml #90 each 07/30/19 glimepiride 2 mg tablet 2 mg PO QAM #90 tab 09/28/19 bupropion HCl 150 mg tablet,12 hr 150 mg PO QAM #180 tab 10/03/19 sustained-release albuterol sulfate 4 puff INHALATION Q4-6H PRN #18 10/14/19 gram baclofen 20 mg tablet 20 mg PO .COMPLEX #60 tab 11/20/19 potassium chloride 20 mEq/15 mL 20 meq PO BID #2400 ml 11/28/19 oral liquid tramadol 50 mg PO Q6H PRN #10 tab 11/30/19 Allergies Allergy/AdvReac Type Severity Reaction Status Date / Time Penicillins Allergy Unknown Verified 11/29/19 14:09 Review of Systems Cardiovascular Cardiovascular: Reports chest pain and Reports dyspnea Respiratory Respiratory: Reports dyspnea Musculoskeletal Comments: Right arm pain Patient History Medical History Cataract (Chronic) Diabetes mellitus (Chronic ~2012) Diverticulitis (Chronic ~2013) Hyperlipidemia (Chronic ~2013) Stroke (Chronic ~2014) Urinary retention (Acute) Surgical History Anesthesia (Resolved) History of tonsillectomy Family History Father Dementia Sister Age: 65 Acute ischemic stroke Social History Smoking Status: Former smoker Smoking Status: Former smoker alcohol intake frequency: 0-2 drinks per day Substance Use Type: does not use Exam Initial Vital Signs Initial Vital Signs: Vital Signs Temperature 97.3 F L 11/30/19 00:14 Pulse Rate 95 H 11/30/19 00:14 Respiratory Rate 17 11/30/19 00:14 Blood Pressure 123/76 11/30/19 00:14 Pulse Oximetry 100 11/30/19 00:14 Const General: comfortable HENMT Head: normal to inspection and normocephalic Resp Effort & Inspection: normal respiratory effort Auscultation: clear to auscultation bilaterally Cardio Rate: regular rate Rhythm: regular rhythm Skin Lesions: no lesions Rashes: no rashes Extrem Other: Tenderness to palpation of the right shoulder and with movement of his right arm. Course Orders Ordered: Discontinued Medications Ketorolac Tromethamine (Toradol) 30 mg IM NOW ONE Stop: 11/30/19 00:20 Last Admin: 11/30/19 00:25 Dose: 30 mg Documented by: MANUEL Vital Signs Vital signs: Vital Signs - 8 hr 11/30/19 00:14 11/30/19 00:32 11/30/19 00:55 Temperature 97.3 F L Pulse Rate 95 H 94 H 89 Respiratory Rate 17 Blood Pressure 123/76 Pulse Oximetry 100 96 97 11/30/19 01:01 Temperature Pulse Rate Respiratory Rate Blood Pressure 117/67 Pulse Oximetry Medical Decision Making MDM Narrative Medical decision making narrative: Patient was given a shot of IM Toradol. Upon further evaluation he again shook his head in an affirmative manner that he was feeling somewhat better. Again it is somewhat difficult to obtain the history or review of systems. Nurses seem to have very difficult time getting him to communicate with them at all. I feel that given his PLOST format bedside which I feel specifically defines what actions he would like to take that holding on further workup to include labs and chest x-ray an EKG or CT scan is warranted in this situation. Will prescribe him some stronger pain medications. Review his medications list shows that he is only on Tylenol. Will discharge back to his nursing facility. Discharge Plan Departure Patient Disposition: Home Clinical Impression: Arm pain, right Chest pain Qualifiers: Chest pain type: unspecified Qualified Code(s): R07.9 - Chest pain, unspecified Discharge Date/Time: 11/30/19 01:30 Activity Restrictions/Additional Instructions: Patient described chest pain with movement of his right arm. He can use the Ultram as needed for discomfort. Please contact his primary provider for follow-up. Prescriptions: New tramadol 50 mg tablet 50 mg PO Q6H PRN (Reason: pain) Qty: 10 RF: 0 No Action water for irrigation, sterile [Aqua Care Sterile Water] Solution 60 ml IRR .COMPLEX Qty: 1000 RF: 3 atorvastatin 40 mg tablet 40 mg PO DAILY Qty: 90 RF: 1 Hold Instructions: may not need acetaminophen 325 mg tablet 325 - 650 mg PO Q4HP PRN (Reason: fever or pain) Qty: 60 RF: 3 nitrofurantoin macrocrystal [Macrodantin] 50 mg capsule 50 mg PO BEDTIME Qty: 30 RF: 0 (DME) BD cath tip syringe 50ml See Rx Instructions .Route .MEDSUPPLY Qty: 90 RF: 1 baclofen 20 mg tablet 20 mg PO .COMPLEX Qty: 60 RF: 2 potassium chloride 20 mEq/15 mL liquid 20 meq PO BID Qty: 2400 RF: 3 glimepiride 2 mg tablet 2 mg PO QAM Qty: 90 RF: 3 bupropion HCl [Wellbutrin SR] 150 mg tablet sustained-release 12 hr 150 mg PO QAM Qty: 180 RF: 1 (DME) disabled parking permit See Rx Instructions .ROUTE .MEDSUPPLY Qty: 1 RF: 0 albuterol sulfate 90 mcg/actuation HFA aerosol inhaler 4 puff INHALATION Q4-6H PRN (Reason: shortness of breath or wheezing) Qty: 18 RF: 0 Referrals: Zeb Cadena MD [Primary Care Provider] -
[2019-11-30] MEDS: KETOROLAC 60 MG/2 ML VIAL 30 MG IM (00:25)
[2019-11-30 00:32] VITALS: PULSE 94; O2SAT 96
[2019-11-30 00:55] VITALS: PULSE 89; O2SAT 97
[2019-11-30 01:01] VITALS: BP 117/67
== END 2019-11-30 01:30 | disposition home or self-care (01) ==
PROVIDERS: Emergency Provider Emergency Medicine; PCP Family Medicine
DX: R07.9 Chest pain, unspecified (principal); M79.601 Pain in right arm; R06.02 Shortness of breath; F03.90 Unspecified dementia, unspecified severity, without behavioral disturbance, psychotic disturbance, mood disturbance, and anxiety
CPT/HCPCS: 96372; 99282; 99283; J1885